=== PATIENT | female | born 1955 | race Hispanic/Latino ===

== ENCOUNTER 2019-03-15 06:30 | Day surgery (SDC) | payer OTHER ==
[~2019-03-15 06:30] MED LIST: Ringers Lactate 1,000 ML IV SCH
[2019-03-15] MEDS ORDERED: Ringers Lactate 1,000 ML IV ONE (06:57)
[2019-03-15] MEDS ORDERED: FENTANYL CITR 100 MCG/2 ML ONE ×2 (06:58→07:59)
[2019-03-15] MEDS ORDERED: PROPOFOL 200 MG/20 ML VIAL IV ONE ×2 (06:59→07:59)
[2019-03-15] MEDS ORDERED: LIDOCAINE 2% MPF 5 ML VIAL ONE (06:59)
[2019-03-15] MEDS ORDERED: MIDAZOLAM HCL 2 MG/2 ML INJ ONE (06:59)
[2019-03-15] MEDS ORDERED: ONDANSETRON 4 MG/2 ML VIAL ONE (07:00)
[2019-03-15] MEDS ORDERED: LIDOCAINE 1% W/EPI 1:100,000 MDV 50 ML VIAL ONE (07:27)
== END 2019-03-15 08:40 | disposition home or self-care (01) ==
LOC: OR 06:30
PROVIDERS: ATTEND Obstetrics & Gynecology
PROC: 0UJD8ZZ Inspection of Uterus and Cervix, Via Natural or Artificial Opening Endoscopic (ICD-10-PCS; 2019-03-15)
PROC: 0UDB7ZX Extraction of Endometrium, Via Natural or Artificial Opening, Diagnostic (ICD-10-PCS; principal; 2019-03-15 07:30)
DX: N95.0 Postmenopausal bleeding (principal); N81.2 Incomplete uterovaginal prolapse; N95.2 Postmenopausal atrophic vaginitis; I10 Essential (primary) hypertension; E03.9 Hypothyroidism, unspecified; K21.9 Gastro-esophageal reflux disease without esophagitis; E78.00 Pure hypercholesterolemia, unspecified; F41.9 Anxiety disorder, unspecified; Z79.899 Other long term (current) drug therapy; Z88.0 Allergy status to penicillin; Z88.8 Allergy status to other drugs, medicaments and biological substances; Z90.49 Acquired absence of other specified parts of digestive tract; Z80.3 Family history of malignant neoplasm of breast; Z80.0 Family history of malignant neoplasm of digestive organs; Z82.49 Family history of ischemic heart disease and other diseases of the circulatory system
CPT/HCPCS: 81025; 88305; J2250; J2405; J2704; J3010

== ENCOUNTER 2019-12-11 22:31 | Emergency (ER) | payer OTHER ==
[2019-12-11] MEDS ORDERED: NA CHLORIDE 0.9% 1,000 ML ONE (23:31)
[2019-12-12 00:10] LABS: Absolute Lymphocytes (CBC) 1.7 K/uL (0.7-4.9); Basophils % 0.7 % (0-1.3); Hematocrit 36.4 % (36.0-45.0); Lymphocytes % 23.1 % (15.3-44.8); MPV 7.1 fL (7.6-11.3); RBC Red Blood Cell Count 4.13 M/uL (3.86-4.86)
[2019-12-12 00:19] LABS: Albumin 3.7 g/dL (3.4-5.0); Bilirubin Direct 0.1 mg/dL (0-0.2); Bilirubin Total 0.3 mg/dL (0.2-1.0); Magnesium 1.9 mg/dL (1.8-2.4); Potassium 3.3 mmol/L (3.5-5.1)
--- NOTE | 2019-12-12 03:11 | ER ---
Nurse's Notes [facility] Name: Stephanie Cox Age: 64 yrs Sex: Female : 1955 Arrival Date: 12/11/2019 Time: 22:32 Bed 14 Private MD: Diagnosis: Diarrhea, unspecified Presentation: 12/11 22:45 Presenting complaint: Patient states: I am having diarrhea started yesterday, it like rr5 watery loose stool and if eel weak. denies nausea, vomiting and abdominal pain. 22:45 Transition of care: patient was not received from another setting of care. Onset of rr5 symptoms was December 10, 2019. Risk Assessment: Do you want to hurt yourself or someone else? Patient reports no desire to harm self or others. Initial Sepsis Screen: Does the patient meet any 2 criteria? HR > 90 bpm. No. Patient's initial sepsis screen is negative. Does the patient have a suspected source of infection? No. Patient's initial sepsis screen is negative. Care prior to arrival: None. 22:45 Method Of Arrival: Ambulatory rr5 22:45 Acuity: LIU 3 rr5 Historical: - Allergies: 22:50 PENICILLINS; rr5 22:50 Prevacid; rr5 22:50 Tamiflu; rr5 - Home Meds: 22:50 elavil [Active]; prolisec [Active]; Lisinopril Oral [Active]; cholestypol [Active]; rr5 levothyroxine oral [Active]; - PMHx: 22:50 Anxiety; Hypertension; Hyperlipidemia; Hypothyroidism; rr5 - PSHx: 22:50 Cholecystectomy; Hernia repair; cyst removed; Appendectomy; rr5 - Immunization history:: Adult Immunizations up to date. - Coronavirus screen:: The patient has NOT traveled to [place] in the past 14 days. Proceed with normal triage process as indicated. - Social history:: Smoking status: unknown Patient/guardian denies using alcohol, street drugs. - Ebola Screening: : Patient negative for fever greater than or equal to 101.5 degrees Fahrenheit, and additional compatible Ebola Virus Disease symptoms Patient denies exposure to infectious person Patient denies travel to an Ebola-affected area in the 21 days before illness onset. Screenin:55 Abuse screen: Denies threats or abuse. Denies injuries from another. Nutritional rr5 screening: No deficits noted. Tuberculosis screening: No symptoms or risk factors identified. Fall Risk None identified. Total Espinoza Fall Scale indicates No Risk (0-24 pts). Assessment: 22:50 General: Appears in no apparent distress. uncomfortable, Behavior is calm, cooperative, rr5 appropriate for age. Pain: Denies pain. Neuro: Level of Consciousness is awake, alert, obeys commands, Oriented to person, place, time, situation, Appropriate for age Reports weakness in generalized. Cardiovascular: Capillary refill < 3 seconds Patient's skin is warm and dry. Respiratory: Airway is patent Respiratory effort is even, unlabored, Respiratory pattern is regular, symmetrical. GI: Abdomen is round non-distended, Reports diarrhea, Patient currently denies nausea, vomiting. : No signs and/or symptoms were reported regarding the genitourinary system. EENT: No signs and/or symptoms were reported regarding the EENT system. Derm: Skin is intact, is healthy with good turgor, Skin temperature is warm. Musculoskeletal: Circulation, motion, and sensation intact. Capillary refill < 3 seconds. 23:50 Reassessment: Patient appears in no apparent distress at this time. No changes from rr5 previously documented assessment. Patient is alert, oriented x 3, equal unlabored respirations, skin warm/dry/pink. no complaints made. 12/12 03:28 Reassessment: Patient states feeling better. mg2 Vital Signs: 12/11 22:45 BP 142 / 81; Pulse 103; Resp 19; Temp 98; Pulse Ox 99% ; Weight 79.38 kg; Height 5 ft. rr5 3 in. (160.02 cm); Pain 0/10; 23:05 BP 150 / 80 Supine; Pulse 108; Resp 18; Pulse Ox 99% ; rr5 23:06 BP 150 / 81 Sitting; Pulse 105; Resp 17; Pulse Ox 98% ; rr5 23:07 BP 159 / 85 Standing; Pulse 107; Resp 16; Pulse Ox 99% ; rr5 12/12 01:52 BP 136 / 79; Pulse 92; Resp 18; Temp 97.9; Pulse Ox 100% on R/A; mg2 03:28 BP 141 / 83; Pulse 89; Resp 18; Temp 98; Pulse Ox 100% on R/A; mg2 12/11 22:45 Body Mass Index 31.00 (79.38 kg, 160.02 cm) rr5 ED Course: 12/11 22:32 Patient arrived in ED. cl3 22:46 Demian Patterson, RN is Primary Nurse. rr5 22:49 Triage completed. rr5 22:50 Arm band placed on right wrist. rr5 22:55 Sarabjit Mccartney PA is PHCP. cp 22:55 Den Nunn MD is Attending Physician. cp 22:56 Patient has correct armband on for positive identification. Bed in low position. Call rr5 light in reach. Pulse ox on. NIBP on. 23:46 No provider procedures requiring assistance completed. Inserted saline lock: 20 gauge mg2 in right antecubital area, using aseptic technique. Blood collected. by DARRYL Arciniega. 12/12 01:14 CT Abd/Pelvis - IV Contrast Only In Process Unspecified. EDMS 03:29 IV discontinued, intact, bleeding controlled, No redness/swelling at site. Pressure mg2 dressing applied. Administered Medications: 12/11 23:46 Drug: NS 0.9% 500 ml Route: IV; Rate: bolus; Site: right antecubital; mg2 12/12 01:30 Follow up: Response: No adverse reaction; IV Status: Completed infusion; IV Intake: mg2 500ml 03:27 Drug: Potassium Effervescent Tablet 50 mEq Route: PO; mg2 03:28 Follow up: Response: No adverse reaction; Medication administered at discharge. mg2 03:28 Drug: LoMOTIL 2 tabs Route: PO; mg2 03:28 Follow up: Response: No adverse reaction; Medication administered at discharge. mg2 Intake: 01:30 IV: 500ml; Total: 500ml. mg2 Outcome: 03:09 Discharge ordered by MD. cp 03:29 Discharged to home ambulatory, with family. mg2 03:29 Condition: stable 03:29 Discharge instructions given to patient, family, Instructed on discharge instructions, follow up and referral plans. Demonstrated understanding of instructions, follow-up care. 03:29 Patient left the ED. mg2 Signatures: Dispatcher [employer] EDMS Sarabjit Mccartney PA PA cp Edu Bird RN RN mg2 Demian Patterson RN RN rr5 Marlys Otto cl3 Corrections: (The following items were deleted from the chart) 12/11 23:09 23:06 BP 150 / 81; Pulse 105bpm; Resp 17bpm; 44.45 kg; BMI: 17.3; rr5 rr5 23:09 23:07 BP 159 / 85; Pulse 107bpm; Resp 16bpm; Pulse Ox 99%; rr5 rr5
--- NOTE | 2019-12-12 03:12 | EDPHYS ---
Physician Documentation [facility] Name: Stephanie Cox Age: 64 yrs Sex: Female : 1955 Arrival Date: 12/11/2019 Time: 22:32 Bed 14 Private MD: ED Physician Den Nunn HPI: 12/11 23:29 This 64 yrs old Female presents to ER via Ambulatory with complaints of cp Diarrhea. 23:29 The patient presents to the emergency department with diarrhea, that is intermittent, 4 cp times today. Onset: The symptoms/episode began/occurred yesterday. Possible causes: unknown. Associated signs and symptoms: Pertinent positives: general weakness, Pertinent negatives: abdominal pain, fever, GI bleeding. Severity of symptoms: in the emergency department the symptoms are unchanged despite home interventions. Historical: - Allergies: 22:50 PENICILLINS; rr5 22:50 Prevacid; rr5 22:50 Tamiflu; rr5 - Home Meds: 22:50 elavil [Active]; prolisec [Active]; Lisinopril Oral [Active]; cholestypol [Active]; rr5 levothyroxine oral [Active]; - PMHx: 22:50 Anxiety; Hypertension; Hyperlipidemia; Hypothyroidism; rr5 - PSHx: 22:50 Cholecystectomy; Hernia repair; cyst removed; Appendectomy; rr5 - Immunization history:: Adult Immunizations up to date. - Coronavirus screen:: The patient has NOT traveled to [place] in the past 14 days. Proceed with normal triage process as indicated. - Social history:: Smoking status: unknown Patient/guardian denies using alcohol, street drugs. - Ebola Screening: : Patient negative for fever greater than or equal to 101.5 degrees Fahrenheit, and additional compatible Ebola Virus Disease symptoms Patient denies exposure to infectious person Patient denies travel to an Ebola-affected area in the 21 days before illness onset. ROS: 23:40 Constitutional: Negative for body aches, chills, fever, poor PO intake. cp 23:40 Eyes: Negative for injury, pain, redness, and discharge. cp 23:40 ENT: Negative for drainage from ear(s), ear pain, sore throat, difficulty swallowing, difficulty handling secretions. 23:40 Cardiovascular: Negative for chest pain, palpitations. 23:40 Respiratory: Negative for cough, shortness of breath, wheezing. 23:40 Abdomen/GI: Positive for diarrhea, Negative for abdominal pain, nausea, vomiting, constipation, anorexia, black/tarry stool, rectal bleeding. 23:40 Back: Negative for pain at rest, pain with movement, radiated pain. 23:40 : Negative for urinary symptoms. 23:40 Skin: Negative for rash. 23:40 Neuro: Positive for general weakness, Negative for altered mental status, dizziness, headache, syncope. 23:40 All other systems are negative. Exam: 23:45 Constitutional: The patient appears in no acute distress, alert, awake, cp non-diaphoretic, non-toxic, well developed, well nourished. 23:45 Head/Face: Normocephalic, atraumatic. cp 23:45 Eyes: Periorbital structures: appear normal, Conjunctiva: normal, no exudate, no injection, Sclera: no appreciated abnormality, Lids and lashes: appear normal, bilaterally. 23:45 ENT: External ear(s): are unremarkable, Nose: is normal, Mouth: Lips: moist, Oral mucosa: pink and intact, moist, Posterior pharynx: is normal, airway is patent, no erythema, no exudate. 23:45 Chest/axilla: Inspection: normal. 23:45 Cardiovascular: Rate: tachycardic, Rhythm: regular, Edema: is not appreciated, JVD: is not appreciated. 23:45 Respiratory: the patient does not display signs of respiratory distress, Respirations: normal, no use of accessory muscles, no retractions, labored breathing, is not present, Breath sounds: are clear throughout, no decreased breath sounds. 23:45 Abdomen/GI: Inspection: abdomen appears normal, Bowel sounds: active, all quadrants, Palpation: abdomen is soft and non-tender, in all quadrants, rebound tenderness, is not appreciated, voluntary guarding, is not appreciated, involuntary guarding, is not appreciated. 23:45 Back: pain, is absent, ROM is normal. 23:45 Neuro: Orientation: to person, place \T\ time. Mentation: is normal, Motor: moves all fours, strength is normal. Vital Signs: 22:45 BP 142 / 81; Pulse 103; Resp 19; Temp 98; Pulse Ox 99% ; Weight 79.38 kg; Height 5 ft. rr5 3 in. (160.02 cm); Pain 0/10; 23:05 BP 150 / 80 Supine; Pulse 108; Resp 18; Pulse Ox 99% ; rr5 23:06 BP 150 / 81 Sitting; Pulse 105; Resp 17; Pulse Ox 98% ; rr5 23:07 BP 159 / 85 Standing; Pulse 107; Resp 16; Pulse Ox 99% ; rr5 12/12 01:52 BP 136 / 79; Pulse 92; Resp 18; Temp 97.9; Pulse Ox 100% on R/A; mg2 03:28 BP 141 / 83; Pulse 89; Resp 18; Temp 98; Pulse Ox 100% on R/A; mg2 12/11 22:45 Body Mass Index 31.00 (79.38 kg, 160.02 cm) rr5 MDM: 12/11 23:10 Patient medically screened. cp 12/12 00:00 Differential diagnosis: gastritis, diverticulitis, gastroenteritis, colitis. cp 03:08 Data reviewed: vital signs, nurses notes, lab test result(s), radiologic studies, CT cp scan, and as a result, I will discharge patient. 03:08 Counseling: I had a detailed discussion with the patient and/or guardian regarding: the cp historical points, exam findings, and any diagnostic results supporting the discharge/admit diagnosis, lab results, radiology results, to return to the emergency department if symptoms worsen or persist or if there are any questions or concerns that arise at home. Response to treatment: the patient's symptoms have markedly improved after treatment, and as a result, I will discharge patient. 12/11 23:22 Order name: Basic Metabolic Panel; Complete Time: 00:30 cp 12/12 00:31 Interpretation: Normal except: K 3.3; CL 108; GLUC 122; GFR 73. cp 12/11 23:22 Order name: CBC with Diff; Complete Time: 00:21 cp 12/12 00:21 Interpretation: Normal except: MPV 7.1. cp 12/11 23:22 Order name: Creatinine for Radiology; Complete Time: 00:30 cp 12/11 23: Order name: Hepatic Function; Complete Time: 00:30 cp 12/12 00:31 Interpretation: Normal except: ALK 152; GLOB 4.3; A/G 0.9. cp 12/11 23:22 Order name: Lipase; Complete Time: 00:30 cp 12/12 00:31 Interpretation: Within normal limits: LIP 152. cp 12/11 23:22 Order name: Magnesium; Complete Time: 00:30 cp 12/11 22:58 Order name: Orthostatics; Complete Time: 23:01 cp 12/11 23:22 Order name: IV Saline Lock; Complete Time: 23:46 cp 12/11 23:22 Order name: CT Abd/Pelvis - IV Contrast Only cp 12/11 23:22 Order name: Labs collected and sent; Complete Time: 23:46 cp Administered Medications: 12/11 23:46 Drug: NS 0.9% 500 ml Route: IV; Rate: bolus; Site: right antecubital; mg2 12/12 01:30 Follow up: Response: No adverse reaction; IV Status: Completed infusion; IV Intake: mg2 500ml 03:27 Drug: Potassium Effervescent Tablet 50 mEq Route: PO; mg2 03:28 Follow up: Response: No adverse reaction; Medication administered at discharge. mg2 03:28 Drug: LoMOTIL 2 tabs Route: PO; mg2 03:28 Follow up: Response: No adverse reaction; Medication administered at discharge. mg2 Disposition: 03:32 Co-signature as Attending Physician, Den Nunn MD. rn Disposition: 12/12/19 03:09 Discharged to Home. Impression: Diarrhea, unspecified. - Condition is Stable. - Discharge Instructions: Food Choices to Help Relieve Diarrhea, Adult, Diarrhea, Adult. - Medication Reconciliation Form, Thank You Letter, Antibiotic Education, Prescription Opioid Use, Family Work Release form. - Follow up: Private Physician; When: 1 - 2 days; Reason: Worsening of condition. - Problem is new. - Symptoms have improved. Signatures: Dispatcher [employer] EDMS Den Nunn MD MD rn Saarbjit Mccartney PA PA cp Edu Bird, RN RN mg2 Demian Patterson RN RN rr5 Corrections: (The following items were deleted from the chart) 03:29 03:09 12/12/2019 03:09 Discharged to Home. Impression: Diarrhea, unspecified. Condition mg2 is Stable. Forms are Family Work Release, Medication Reconciliation Form, Thank You Letter, Antibiotic Education, Prescription Opioid Use. Follow up: Private Physician; When: 1 - 2 days; Reason: Worsening of condition. Problem is new. Symptoms have improved. cp
[2019-12-12] MEDS ORDERED: DIPHENOX/ATROP SULF 1 TAB PO ONE (03:22)
[2019-12-12] MEDS ORDERED: POTASSIUM 25 MEQ EFFERV TAB ONE (03:22)
[2019-12-12 05:27] VITALS: O2SAT 100
[2019-12-12 05:29] VITALS: BP 141/83; TEMP 98
--- NOTE | 2019-12-12 13:23 | RAD REPORT ---
EXAM DESCRIPTION: CT - Abdomen Pelvis W Contrast - 12/12/2019 3:35 am COMPARISON: None. TECHNIQUE: CT ABDOMEN PELVIS WITH IV CONTRAST on 12/11/2019 11:22 PM [facility] This exam was performed according to our departmental dose-optimization program, which includes autom ated exposure control, adjustment of the mA and/or kV according to patient size and/or use of iterati ve reconstruction technique. FINDINGS: Lower lungs are clear. Abdomen: The liver is normal in appearance. There is no biliary dilatation. Cholecystectomy was perfo rmed. The pancreas and spleen are normal in appearance. Adrenal glands are normal. Left kidney is unr emarkable. There is a small right renal cyst. Abdominal aorta is normal in course and caliber without aneurysm. There is no free air. There is no r etroperitoneal adenopathy. Pelvis: There is scattered fluid in the proximal two thirds of the colon. Urinary bladder is unremark able. There is no free fluid. Hysterectomy was performed. Appendix is not clearly seen. Skeleton: There are no acute osseous findings. No suspicious bony lesions. IMPRESSION: Minimal fluid in the proximal colon. Electronically signed by: Geovani Wade MD 12/12/2019 1:33 AM [facility] Due to temporary technical issues with the PACS/Fluency reporting system, reports are being signed by the in house radiologist as a courtesy to ensure prompt reporting. The interpreting radiologist is f ully responsible for the content of the report.
== END 2019-12-12 03:29 | disposition home or self-care (01) ==
LOC: ER 22:31
DX: R19.7 Diarrhea, unspecified (principal); I10 Essential (primary) hypertension; F41.9 Anxiety disorder, unspecified; E78.5 Hyperlipidemia, unspecified; E03.9 Hypothyroidism, unspecified; Z88.0 Allergy status to penicillin; Z88.8 Allergy status to other drugs, medicaments and biological substances
CPT/HCPCS: 96361; 85025; 80048; 36415; 83735; 80076; 83690; 74177; 96360; 99284; Q9967; J7030

== ENCOUNTER 2020-04-24 09:28 | Day surgery (SDC) | payer OTHER ==
[2020-04-18 12:26] LABS: Urine Appearance CLEAR; Urine Bilirubin NEGATIVE (NEG); Urine Blood TRACE (NEG); Urine Color YELLOW; Urine Glucose NEGATIVE (NEG); Urine Protein NEGATIVE (NEG); Urine Specific Gravity <=1.005 (1.005-1.030); Urine Urobilinogen 0.2 mg/dL (0.2-1.0)
[2020-04-18 12:27] LABS: Absolute Lymphocytes (CBC) 2.1 K/uL (0.7-4.9); Basophils % 0.9 % (0-1.3); Hematocrit 36.6 % (36.0-45.0); Lymphocytes % 37.2 % (15.3-44.8); MPV 7.2 fL (7.6-11.3); RBC Red Blood Cell Count 4.15 M/uL (3.86-4.86)
[2020-04-18 12:30] LABS: Urine Microscopic Reflex ORDER UMIC
[2020-04-18 12:30] LABS: Protime INR 0.91
[2020-04-18 12:42] LABS: Potassium 3.7 mmol/L (3.5-5.1)
[2020-04-18 12:51] LABS: Urine Bacteria NONE SEEN /HPF (<20); Urine Culture Reflex Order NOT NEEDED; Urine RBC <5 /HPF (NONE SEEN)
[2020-04-24] MEDS ORDERED: SCOPOLAMINE HYDROBROMIDE PATCH TD ONE (09:51)
[2020-04-24] MEDS ORDERED: Ringers Lactate 1,000 ML IV ONE ×4 (09:51→19:37)
[2020-04-24] MEDS ORDERED: NA CHLORIDE 0.9% 100 ML IV ONE (11:09)
[2020-04-24] MEDS ORDERED: VASOPRESSIN 20 UNIT/ML VIAL ONE (11:09)
[2020-04-24] MEDS ORDERED: BUPIVACAINE 0.25% PF 30 ML VIAL ONE (11:10)
[2020-04-24] MEDS ORDERED: propofoL 200 MG/20 ML VIAL IV ONE (11:14)
[2020-04-24] MEDS ORDERED: dexAMETHasone 10 MG/ML VIAL ONE ×2 (11:14→12:22)
[2020-04-24] MEDS ORDERED: FENTANYL CITR 250 MCG/5 ML ONE (11:14)
[2020-04-24] MEDS ORDERED: MIDAZOLAM HCL 2 MG/2 ML INJ ONE (11:14)
[2020-04-24] MEDS ORDERED: LIDOCAINE 1% MPF 5 ML VIAL ONE (11:14)
[2020-04-24] MEDS ORDERED: NS 0.9% VIAL 10 ML ONE (11:14)
[2020-04-24] MEDS ORDERED: ONDANSETRON 4 MG/2 ML VIAL ONE ×3 (11:15→19:32)
[2020-04-24] MEDS: CEFAZOLIN/SWI 2gm 2 GM/20 ML SYR ONE ×2 (11:49→12:00)
[2020-04-24] MEDS ORDERED: LANO/MINERAL OIL/PETRO 3.5 GM ONE (12:11)
[2020-04-24] MEDS ORDERED: VECURONIUM 10 MG/VIAL IV ONE ×2 (12:12→12:13)
[2020-04-24] MEDS ORDERED: KETOROLAC 30 MG/ML INJ ONE (12:23)
[2020-04-24] MEDS ORDERED: GLYCOPYRROLATE 0.2 MG/ML SYR ONE ×3 (12:34→18:41)
[2020-04-24] MEDS ORDERED: NA CHLORIDE 0.9% 1,000 ML ONE (12:41)
[2020-04-24] MEDS ORDERED: CEFAZOLIN/SWI 1gm 1 GM/10 ML SYR ONE (13:21)
[2020-04-24] MEDS ORDERED: CEFAZOLIN SODIUM 1 GM/VIAL ONE (13:33)
--- NOTE | 2020-04-24 17:46 | P.OP ---
It Coordinator: Dr. Connors Preoperative diagnosis: Intra-abdominal Adhesions Postoperative diagnosis: Intra-abdominal Adhesions Primary procedure: Laparoscopic Adhesiolysis Secondary procedure: Laparoscopic Exploration Anesthesia: GETA Estimated blood loss: <1cc Specimen: None Findings: Intra-abdominal adhesions Complications: None
[2020-04-24] MEDS ORDERED: NEOSTIGMINE 1 MG/ML -5 ML ONE (18:40)
[2020-04-24] MEDS ORDERED: HYDROCODONE/APAP 5/325 MG TAB PO PRN (19:23)
[2020-04-24] MEDS ORDERED: IBUPROFEN 200 MG TAB PO PRN (19:23)
[2020-04-24] MEDS ORDERED: PROMETHAZINE INJ 25 MG/ML AMP IV PRN (19:23)
[2020-04-24] MEDS ORDERED: MORPHINE 2 MG/ML SYR IV PRN (19:28)
[2020-04-24] MEDS ORDERED: PROMETHAZINE INJ 25 MG/ML AMP ONE (19:32)
[2020-04-24] MEDS ORDERED: FENTANYL CITR 100 MCG/2 ML ONE (19:33)
--- NOTE | 2020-04-24 19:34 | P.BOP ---
Preoperative diagnosis: stage 4 uterovaginal prolapse,occult STEPHEN, posterior wall and perineal body Postoperative diagnosis: same and adhesions Primary procedure: TLH BSO, LSCP with Upsylon mesh,TVT-O cysto,post wall/perineal body repairs Secondary procedure: Laparoscopic lysis of adhesions Speech Therapist Early Intervention: Dr. Connors Estimated blood loss: 100 Specimen: uterus tubes and ovaries Findings: 0/+3/+8/5/mod/9/-2/+3/+7, intra-abdominal adhesions omentum Anesthesia: General Complications: None Drain(s): Urinary catheter Implants: UPSYLON, TVT-O Transferred to: Recovery Room Condition: Good
[2020-04-24] MEDS ORDERED: MEPERIDINE HCL 25 MG/ML SYR ONE (19:35)
[2020-04-24] MEDS: HYDROMORPHONE HCL 1 MG/ML INJ ONE ×2 (19:43→19:50)
[2020-04-24] MEDS ORDERED: Ringers Lactate 1,000 ML IV SCH (20:00)
[2020-04-24 21:50] VITALS: BMI 28.5
[2020-04-25 00:53] VITALS: O2SAT 98
[2020-04-25] MEDS ORDERED: LEVOTHYROXINE SOD 0.05 MG TABLET PO SCH (06:00)
[2020-04-25 06:30] LABS: Absolute Lymphocytes (CBC) 1.3 K/uL (0.7-4.9); Basophils % 0.1 % (0-1.3); Hematocrit 35.7 % (36.0-45.0); Lymphocytes % 12.7 % (15.3-44.8); RBC Red Blood Cell Count 4.03 M/uL (3.86-4.86)
[2020-04-25] MEDS ORDERED: PANTOPRAZOLE 40MG TABLET PO SCH (06:30)
[2020-04-25] MEDS ORDERED: MORPHINE 4 MG/ML SYR IV PRN (07:31)
[2020-04-25 07:41] VITALS: BP 129/73; TEMP 97.3
[2020-04-25] MEDS ORDERED: PNEUMOCOCCAL VACCINE 0.5 ML IMVAC ONE (09:00)
[2020-04-25] MEDS ORDERED: METOPROLOL XL 25 MG TAB PO SCH (09:00)
[2020-04-25] MEDS ORDERED: lisinopriL 20 MG TAB PO SCH (09:00)
[2020-04-25] MEDS ORDERED: lisinopriL 10 MG TAB PO SCH (09:00)
[2020-04-25 09:53] LABS: Blood Morphology Comment NOT SEEN (NOT SEEN); Platelet Estimate ADEQ; Urine White Blood Cell Casts OK
--- NOTE | 2020-04-28 11:46 | OP ---
Date of Procedure: 04/24/2020 Surgeon: Jasmyne Connors MD Family Life Counselor: Elisa Calderon, and Dr. Burks. Intraoperative consult for assistance and lysis of adhes ions. Preoperative Diagnoses: Stage IV uterovaginal prolapse, postmenopausal bleeding, posterior wall defe ct, and occult stress urinary incontinence. Postoperative Diagnoses: Stage IV uterovaginal prolapse, postmenopausal bleeding, posterior wall def ect, and occult stress urinary incontinence, and omental adhesions. Procedures Performed: 1.Total laparoscopic hysterectomy, bilateral salpingo-oophorectomy. 2.Laparoscopic sacral colpopexy using Epsilon mesh. 3.Lysis of adhesions. 4.Mid urethral sling (TVTO) cystoscopy. 5.Posterior wall defect and perineal body defect repairs. Specimens: Uterus, tubes, and ovaries. Complications: No complications. Drains: Hirsch catheter. Condition: The patient's condition stable. Indications For Procedure: The patient is a 64-year-old female with significant vaginal prolapse, pr esented with symptoms and difficult emptying her bladder and was evaluated last year. She refused to have pessary management. She had waited an additional year before deciding that she want s surgical treatment after the bulges causing her significant discomfort, then the voiding problems, then urgency related to overactive bladder symptoms. She has decided to proceed with surgery, tono de [place] paz. Alternatives were discussed including vaginal repair, colpocleisis or sacral colpopexy. After understanding the benefits and risks of these procedure, she consented for proceeding with sacrocolpo pexy, removal of uterus and tubes and ovaries especially in the presence of postmenopausal bleeding. Her endometrial evaluation was negative for atypia or malignancy. Description Of Procedure: After informed consent was verified, the patient was taken back to the ope rating room, placed in supine fashion on the operating table, general anesthesia was given. She was placed in dorsal lithotomy position. Pelvic exam was performed. POP-Q as dictated 0, +3, +8, 5 moder ate 9 cm, -2, +3, and +7. Omental adhesions seen, Dr. Burks assisted. Sacrocolpopexy mesh was placed without significant problem using ProTack 4 prolene sutures at the dis agbbi fixation point, 2 anterior and 2 posterior for the graft and rest with 2-0 V-Loc. Then, closure of the peritoneum to retroperitonealize the graft with 2-0 V-Loc as well. Abdomen, vulva, vagina, and perineum were prepped and draped in a sterile fashion. Hirsch was placed to drain the bladder, attached for retrograde filling. A medium VCare was introduced in the uterus a nd fixed in place. The vaginal prolapse was pushed inside and procedure started. 1 cm infraumbilical incision made with a scalpel using the open laparoscopy technique. Fascia was in cised, tagged with 0 Vicryl sutures. S-retractors were placed after exposing the peritoneum. The pe ritoneum was picked up and sharply incised. S-retractors were placed into the peritoneal cavity. Rodriguez sson introduced. Insufflated site of entry was checked, unremarkable. There were omental adhesions to the anterior abdominal wall in the right lower quadrant and in the right lateral anterior abdomina l wall. After placing the left lower quadrant incision, then all these adhesions were taken down to facilitate the placement of the right lower quadrant port. Once this was placed, which is also a 5, a 10 mm suprapubic port was placed without any problems. Then, I went ahead and evaluated the latera l house. Bowel was retracted superiorly, patient placed in Trendelenburg. Hysterectomy was performed with the help of a LigaSure, taken down the utero-ovarian ligament, tubes, and mesosalpinx, then round ligaments, broad ligaments were taken down. Vessels were skeletonized, vessels taken down on the left side, then on the right side similar dissection was performed. Circum ferential colpotomy was performed with a monopolar hook blade and specimen detached and pulled out th rough the vagina. 2-0 V-Loc was used to closed in a continuous running fashion from [id number] and [id number]-[id number] in 2 layers vaginal epithelium and pelvic epithelium first and then connective tissue layers on the top. The vaginal occluder sponge was removed and then the Epsilon mesh kit was opened and the retractor wa s opened up and was used on the wider side for retraction. After making sure that the bladder was adequately visualized, had Dr. Burks has placed, look at his note. He did his part of the procedure and remained to made through the rest of the procedure. The bladder was raised and the plane between the bladder and the vagina was created, making sure it w as not in the vesicovaginal space, 1 layer superior to it. The bladder was taken down about 5 cm fro m the closure, then came down posteriorly and the peritoneum was picked up and incised with scissors then sharply taken down, the dissection was done sharply staying at the level of the vaginal wall pos teriorly, then dropping the rectum down and getting down to 9 cm on the posterior wall from the apex. Then, at this point once the dilation was performed on the lateral aspects as well then went back a nteriorly. More laterally that had to be taken down, LigaSure was used for this dissection with just a sharp blade in most places and occasionally for the bipolar affect. The promontory peritoneum was picked up and incised with the help of the LigaSure, then, the incision carried , inferior to the vein and then distally, then dissection taken down to join the p eritoneum on the posterior wall dissection. Staying in between the bowel and the ureter. Avoided the hypogastric plexus during this dissection. Put in Epsilon mesh graft, opened it and trimmed it with its length by 1 cm on the posterior aspect a nd the anterior was sutured onto the sacral arm with 3-0 chromic stitch for retraction. A central khan ture was placed with the help of 2-0 V-Loc in the midline of the posterior vaginal wall and the lowes t part of the dissection. Then graft was pulled in and laid out there and two 2-0 Prolene sutures we re placed on each side. A veoxye-nn-prkwv was placed and then passed through the graft and they were tied on each side laterally to lay down the mesh. The mesh was retracted superiorly through the sup rapubic port so that it laid on the vaginal wall well-opposed and 2 V-Loc sutures were placed in a fi fncg-sw-[id number] fashion to hold it in place in the distal part about 1.5 cm inferior to the vaginal cuf f closure. Then, the arm was taken to promontory and was fixated here after appropriately tensioning from the level of the bifurcation about 3 cm was used. This appeared to be appropriate tension. I placed 2 ProTacks at 4 cm length from the bifurcation. Once the retractor was removed, the vagina po sitioned into the anatomical position, I felt like this was slightly looser than what was optimal sti ll without tension, so 1 cm was pulled superiorly and then rest of the ProTacks were placed; 2 were p laced to tension first, then folded over and placed 2 more. There was excellent suspension. The ret ractor was removed and made sure that the access was appropriate and there was not too much tension a nd this was appropriate without excessive tension. The mesh was trimmed at the sacral the Vicryl stitch was removed. The anterior arm placed on the anterior wall. Distal 2-0 Prolene sutures were taken in and the inferior most, lateral most fixation points on the vaginal wall, then fixated to the graft, then 2-0 V-Loc sutures were placed 1 on each side about 1 cm distal to the closure for holding the graft in place. Once this was done, a central 2-0 V-Loc suture was placed here and distally as well, another 2-0 V-Loc had to be placed in a central position distally to keep the graft in place because the other one had pulled through. Once the entire tensioning was done, I went down vaginally and checked 1 more time. There was excell ent anterior and posterior wall support. After changing the gloves, went back onto the top and closed the peritoneum with a continuous 2-0 V-L oc, completely retroperitonealsing the peritoneum in the usual fashion. Thorough irrigation and suction was performed. All trocars were removed. There was significant diff iculty with retention of trocars within the abdominal wall on both 8 ports on the lateral aspects. T he patient could have some pain in this from constant repositioning of the retractors. They were too short and there was no replacement alternative for that. All the trocars were removed. The fascia at the umbilicus was tied with tag sutures tied together an d simple Vicryl stitch at the suprapubic fascial incision. All the incisions were injected with Jimy christina at the entry and exit both the fascia and the skin. Skin closed with the help of interrupted 4- 0 Vicryl sutures. The patient did have hypercapnia and some difficulty ventilating, had to stop in between and wait to hyperventilate the patient. However, her pCO2 ran somewhere at 50 at an average through most of the case or at least 3/4 of the case. She will be observed regularly. There were no concerns extubating the patient or ventilating the patient before she was woken up. Going on vaginally, mid urethral area was picked up with 2 Allis clamps, injected with dilute vasopre ssin, then 1 cm midline incision was made with scalpel. Then, dissection was performed towards the i psilateral shoulder, hugging the inferior pubic ramus into the obturator space. Once this channel wa s created, then a 45- degree angle to the vertical and horizontal planes, a similar channel was creat ed on the left side. Then, the wing guide was taken, TVTO spike was passed in the usual fashion hugg ing the inferior pubic ramus and exiting 1 cm lateral to the groin fold and 2 cm superior to the hori zontal line dropped at the level of the external urethral meatus avoiding the tendon. In a similar f ashion, wing guide was placed. Trocar was passed and exit point was made and appropriate tension was done, sheaths were pulled out. Then, closure of the epithelium was done with the help of 3-0 Vicryl in a continuous running locked fashion. Hirsch was removed, cystoscopy was performed, exc ellent urine jets from both ureteric orifices. No evidence of any trauma to the bladder. No mesh in the bladder. The bladder inspection was negative. The bladder was drained, Hirsch was replaced, clamped with a Elenita. The vaginal wall was inspected. There was a distal defect. Perineal body appeared to be slightly we ak, but most of the posterior defect was completely corrected. So 2 Allis clamps were placed on eith er side at the level of the vestibule. Then injected the perineal area as well as the posterior wall with dilute vasopressin. A triangular incision made on the perineum and then another triangular inc ision made on the posterior vaginal wall. The epithelium was excised and both spots undermined the d istal part of the connective tissue and the posterior wall was detached from the perineal body. This was reattached after plicating from [id number] with the help of 2-0 Vicryl then rebuilding the per ineal body with a 2-0 Vicryl and then reattaching it. Vaginal epithelium was slightly trimmed and cl osed with the help of less than half a cm and closed with the help of a 2-0 Vicryl continuous running horizontal mattress stitch and 3-0 Vicryl was used to close the perineal incision by putting the per ineal body together in the distal perineal aspect. After the suture was cut, rectal exam was perform ed, no evidence of any suture or trauma to the rectum. The patient was recovered from anesthesia aft er instrument, needle, and sponge counts were correct x3 at the end of the case. Hirsch was left in p lace, packing placed. This will be removed in the morning and she will undergo a voiding trial. She got a second dose of Ancef, she had initial dose of 2 g and a repeat dose 1 g. PRABHA/CECILIA Voice ID: [id number] Report ID: [id number]
--- NOTE | 2020-04-30 09:45 | OP ---
Date of Procedure: 04/24/2020 Surgeon: Phuc Burks MD, Brief History Of Present Illness: I was consulted by Dr. Jasmyne Connors for intraoperative consult ation for the patient she was performing a total laparoscopic hysterectomy, bilateral salpingo-oophor ectomy, laparoscopic sacral colpopexy with Epsilon mesh and a urethral sling TVT-O, cystoscopy with p osterior wall defect and perineal body defect repairs. She consulted me to help her with this case a s such I was co-surgeon during my aspect of this procedure. Postoperative Diagnosis: Extensive intraabdominal adhesions from my aspect. Please see Dr. Connors 's note for her aspect. Postoperative Diagnosis: Extensive intraabdominal adhesions from my aspect. Please see Dr. Connors 's note for her aspect. Procedure Performed: Laparoscopic exploration as well as laparoscopic adhesiolysis and I assisted Dr Samuel Connors with the remainder of her aspect of the operation. Estimated Blood Loss: For my aspect of the operation, less than 1 cc. Anesthesia: General endotracheal. Specimen: None. Findings: Consistent with significant intraabdominal adhesions. Complications: None for my aspect. Please see Dr. Connors's note for full details. Procedure In Detail: The patient was prepped and draped in the usual sterile fashion. Upon my entry to the room, Dr. Connors was already performing the procedure and I came into note significant intr aabdominal adhesions, particularly in the pelvic region. The laparoscopic exploration was performed at this point of the pelvis and I used the LigaSure device and blunt dissection to take down multiple adhesions predominantly to the pelvic wall and interloop as well as between the pelvic structures an d the rectosigmoid colon. After this was performed, I assisted Dr. Connors for the remainder of her procedure. The patient tolerated the procedure well without evidence of complication, transferred t o the PACU after Dr. Connors completed her aspect of the operation. There were no complications fro m my aspect of the operation. Please see Dr. Connors's note for full details. TK/MODL Voice ID: [id number] Report ID: [id number]
== END 2020-04-25 11:00 | disposition home or self-care (01) ==
LOC: OR 09:28 → 2ND-WC 21:22 → UNDOADMIN 21:22 → 2ND-WC 21:24 → UNDODISIN 04-25 11:00 → OR 04-25 11:00
PROVIDERS: ATTEND Obstetrics & Gynecology
PROC: 0UT24ZZ Resection of Bilateral Ovaries, Percutaneous Endoscopic Approach (ICD-10-PCS; 2020-04-24)
PROC: 0UT74ZZ Resection of Bilateral Fallopian Tubes, Percutaneous Endoscopic Approach (ICD-10-PCS; 2020-04-24)
PROC: 0USG4ZZ Reposition Vagina, Percutaneous Endoscopic Approach (ICD-10-PCS; 2020-04-24)
PROC: 0UUG4JZ Supplement Vagina with Synthetic Substitute, Percutaneous Endoscopic Approach (ICD-10-PCS; 2020-04-24)
PROC: 0USG7ZZ Reposition Vagina, Via Natural or Artificial Opening (ICD-10-PCS; 2020-04-24)
PROC: 0UT94ZZ Resection of Uterus, Percutaneous Endoscopic Approach (ICD-10-PCS; principal; 2020-04-24 10:30)
DX: N81.4 Uterovaginal prolapse, unspecified (principal); N95.0 Postmenopausal bleeding; N39.3 Stress incontinence (female) (male); K66.0 Peritoneal adhesions (postprocedural) (postinfection); N72 Inflammatory disease of cervix uteri; N88.0 Leukoplakia of cervix uteri; D25.9 Leiomyoma of uterus, unspecified; N89.8 Other specified noninflammatory disorders of vagina
CPT/HCPCS: 58571; 57288; 57285; 57267 ×2; 57283; 85025 ×2; 80048; 36415 ×2; 86900; 86850; 85610; 86901; 88305; 88311; 85730; 90670; U0002; J2704; J2550; J2250; J3010; J1100 ×2; J1170; J2710; J0690 ×3; J7120 ×5; J7030; J2405 ×2; 81003; 81015; J2175; J2270

== ENCOUNTER 2020-06-26 10:11 | Observation (INO) | payer OTHER ==
[2020-06-26 11:05] LABS: Absolute Lymphocytes (CBC) 1.5 K/uL (0.7-4.9); Basophils % 0.5 % (0-1.3); Hematocrit 32.2 % (36.0-45.0); Lymphocytes % 19.2 % (15.3-44.8); MPV 6.6 fL (7.6-11.3)
[2020-06-26 11:14] LABS: Protime INR 1.11
[2020-06-26 11:22] LABS: BUN Blood Urea Nitrogen 8 mg/dL (7-18); Bicarbonate 27 mmol/L (21-32); Ferritin 254.5 ng/mL (8-388); Glucose Level 168 mg/dL (74-106); NT PRO-BNP 112 pg/mL (<125); Potassium 3.4 mmol/L (3.5-5.1); Sodium Level 134 mmol/L (136-145); Troponin (Emerg Dept Use Only) < 0.02 ng/mL (0.0-0.045)
[2020-06-26] MEDS ORDERED: NA CHLORIDE 0.9% 1,000 ML ONE (11:34)
[2020-06-26] MEDS ORDERED: dexAMETHasone 10 MG/ML VIAL ONE (11:34)
--- NOTE | 2020-06-26 12:15 | RAD REPORT ---
EXAM DESCRIPTION: CT - Chest For Pe Angio - 06/26/2020 12:05 pm CLINICAL HISTORY: sob COMPARISON: None. TECHNIQUE: Dynamically enhanced axial 3 mm thick images of the chest were obtained during administra tion of <100> mL Isovue 370 IV contrast. Coronal and oblique reconstruction images were generated and reviewed. Exam utilizes a protocol for optimal evaluation of pulmonary arterial tree. Maximum intensity projections 3D imaging was utilized All CT scans are performed using dose optimization technique as appropriate and may include automated exposure control or mA/KV adjustment according to patient size. FINDINGS: A pulmonary embolus is not seen. A thoracic aortic aneurysm is not noted. A pleural effusion is not seen. A pericardial effusion is not seen. Mild to moderate bilateral ground-glass opacities within the lungs IMPRESSION: Negative for a pulmonary embolism. Mild to moderate ground-glass opacities within the lungs may represent viral pneumonia, pneumonitis o r pulmonary edema
--- NOTE | 2020-06-26 12:35 | ER ---
Nurse's Notes [facility] Name: Stephanie Cox Age: 65 yrs Sex: Female : 1955 Arrival Date: 06/26/2020 Time: 10:14 Bed 14 Private MD: Diagnosis: Pneumonia, unspecified organism;Hypoxemia;Dyspnea, unspecified;Influenza due to other identified influenza virus Presentation: 06/26 10:28 Chief complaint: Patient states: SOB at rest, worst with exertion x 1 week, cough x 2 ca1 weeks. Denies fever. Denies N/V/D. Coronavirus screen: cough unrelated to allergies, shortness of breath, The client reports previous COVID testing was negative. Date of collection: June 13, 2020. Coronavirus screen: Client presents with at least one sign or symptom that may indicate coronavirus-19. Standard/surgical mask placed on the client. Provider contacted for isolation considerations. Ebola Screen: Patient negative for fever greater than or equal to 101.5 degrees Fahrenheit, and additional compatible Ebola Virus Disease symptoms Patient denies exposure to infectious person. Patient denies travel to an Ebola-affected area in the 21 days before illness onset. No symptoms or risks identified at this time. Initial Sepsis Screen: Does the patient meet any 2 criteria? RR > 20 per min. HR > 90 bpm. Yes Does the patient have a suspected source of infection? Yes: Productive cough/pneumonia. Risk Assessment: Do you want to hurt yourself or someone else? Patient reports no desire to harm self or others. Onset of symptoms was June 26, 2020. 10:28 Method Of Arrival: Ambulatory ca1 10:28 Acuity: LIU 2 ca1 Triage Assessment: 10:30 General: Appears distressed, uncomfortable, ill, Behavior is cooperative, appropriate bp for age, anxious. Pain: Denies pain. EENT: No deficits noted. Neuro: No deficits noted. Cardiovascular: No deficits noted. Respiratory: Reports shortness of breath cough that is Onset: The symptoms/episode began/occurred at an unknown time. the patient has mild shortness of breath. GI: No signs and/or symptoms were reported involving the gastrointestinal system. : No signs and/or symptoms were reported regarding the genitourinary system. Derm: No deficits noted. Musculoskeletal: No deficits noted. Historical: - Allergies: 10:34 PENICILLINS; ca1 10:34 Prevacid; ca1 10:34 Tamiflu; ca1 10:34 Tape; ca1 10:34 Latex, Natural Rubber; ca1 - PMHx: 10:34 Anxiety; Hyperlipidemia; Hypertension; Hypothyroidism; ca1 - PSHx: 10:34 Cholecystectomy; Hernia repair; cyst removed; Appendectomy; Hysterectomy; Bladder Lift; ca1 - Immunization history:: Adult Immunizations up to date. - Social history:: Smoking status: Patient denies any tobacco usage or history of. - Family history:: not pertinent. - Hospitalizations: : No recent hospitalization is reported. Screenin:30 Abuse screen: Denies threats or abuse. Denies injuries from another. Nutritional bp screening: No deficits noted. Fall Risk None identified. 10:30 Tuberculosis screening: No symptoms or risk factors identified. bp Assessment: 10:30 General: SEE TRIAGE NOTE. Cardiovascular: Rhythm is sinus tachycardia. Respiratory: bp Airway is patent Respiratory effort is even, unlabored, Breath sounds are coarse bilaterally. 11:30 Reassessment: LACTIC AND DDIMER CRITICAL VALUES REC'D FROM LAB AND RELAYED TO MD. bp 12:13 Reassessment: CT RESULTS PENDING. VS STABLE ON MONITOR. bp 13:15 Reassessment: ADMIT PENDING, CXR ABNORMAL PER RADIOLOGIST. bp 14:21 Reassessment: PT SEEN BY DR RINCON, ADMIT IN PROCESS. bp 15:46 Reassessment: ADMIT IN PROCESS, NO SIGNIFICANT CHANGES. bp 17:09 Reassessment: ADMIT IN PROCESS, BED ASSIGNED. NO CHANGE IN S/S. bp 17:38 Reassessment: ADMIT COMPLETE, REPORT TO YANCY ANDREWS FOR RM 219. bp Vital Signs: 10:28 BP 122 / 76; Pulse 112; Resp 22; Temp 98.4(TE); Pulse Ox 95% on R/A; Weight 71.21 kg ca1 (R); Height 5 ft. 3 in. (160.02 cm); Pain 0/10; 11:02 BP 113 / 78; Pulse 108; Resp 21; Pulse Ox 95% ; bp 11:30 BP 115 / 84; Pulse 99; Resp 16; Pulse Ox 94% ; bp 12:12 BP 108 / 71; Pulse 99; Resp 16; Pulse Ox 93% ; bp 13:15 BP 117 / 62; Pulse 98; Resp 16; Pulse Ox 94% ; bp 14:15 BP 113 / 81; Pulse 100; Resp 17; Pulse Ox 93% ; bp 15:45 BP 117 / 77; Pulse 94; Resp 16; Pulse Ox 93% ; bp 17:09 BP 114 / 76; Pulse 87; Resp 16; Pulse Ox 93% ; bp 10:28 Body Mass Index 27.81 (71.21 kg, 160.02 cm) ca1 ED Course: 10:14 Patient arrived in ED. as 10:30 Patient has correct armband on for positive identification. Placed in gown. Bed in low bp position. Call light in reach. Side rails up X2. 10:33 Triage completed. ca1 10:34 Arm band placed on right wrist. ca1 10:39 Lauro Kilgore, DARRYL is Primary Nurse. bp 10:39 Den Nunn MD is Attending Physician. rn 10:55 Inserted saline lock: 20 gauge in right forearm, using aseptic technique. Blood bp collected. 12:05 CT Chest For PE Angio In Process Unspecified. EDMS 12:12 Throat Culture Sent. bp 12:35 Mike Rincon is Hospitalizing Provider. rn 15:18 CXR XRAY In Process Unspecified. EDMS Administered Medications: 11:05 Drug: Decadron - Dexamethasone 10 mg Route: IVP; Site: right forearm; bp 12:12 Follow up: Response: No adverse reaction bp 11:05 Drug: NS 0.9% 500 ml Route: IV; Rate: bolus; Site: right forearm; bp 14:10 Follow up: IV Status: Completed infusion; IV Intake: 500ml bp 11:05 Drug: NS 0.9% 500 ml Route: IV; Rate: bolus; Site: right forearm; bp 14:10 Follow up: IV Status: Completed infusion; IV Intake: 500ml bp Intake: 14:10 IV: 500ml; Total: 500ml. bp 14:10 IV: 500ml; Total: 1000ml. bp Outcome: 12:35 Discharge ordered by . rn 12:36 Decision to Hospitalize by Provider. rn 17:55 Patient left the ED. bp Signatures: Dispatcher [employer] EDMS Scarlett Walls Roman, MD MD rn Peltier, Brian, RN RN bp AcGalina kothari RN RN ca1 Corrections: (The following items were deleted from the chart) 12:13 12:12 Pulse 99bpm; Resp 16bpm; Pulse Ox 93%; bp bp
--- NOTE | 2020-06-26 12:35 | EDPHYS ---
Physician Documentation [facility] Name: Stephanie Cox Age: 65 yrs Sex: Female : 1955 Arrival Date: 06/26/2020 Time: 10:14 Bed 14 Private MD: ED Physician Den Nunn HPI: 06/26 11:31 This 65 yrs old Female presents to ER via Ambulatory with complaints of rn Breathing Difficulty. 11:31 The patient has shortness of breath at rest, with light activity. Onset: The rn symptoms/episode began/occurred 2 week(s) ago. Duration: The symptoms are continuous. The patient's shortness of breath is aggravated by exertion. Severity of symptoms: At their worst the symptoms were moderate in the emergency department the symptoms are unchanged. The patient has not experienced similar symptoms in the past. Reports cough and sob for 1-2 weeks, getting worse, triage states O2 87%, tested neg for COVID at beginning of symptoms, but none more recent. . Historical: - Allergies: 10:34 PENICILLINS; ca1 10:34 Prevacid; ca1 10:34 Tamiflu; ca1 10:34 Tape; ca1 10:34 Latex, Natural Rubber; ca1 - PMHx: 10:34 Anxiety; Hyperlipidemia; Hypertension; Hypothyroidism; ca1 - PSHx: 10:34 Cholecystectomy; Hernia repair; cyst removed; Appendectomy; Hysterectomy; Bladder Lift; ca1 - Immunization history:: Adult Immunizations up to date. - Social history:: Smoking status: Patient denies any tobacco usage or history of. - Family history:: not pertinent. - Hospitalizations: : No recent hospitalization is reported. ROS: 11:31 Constitutional: Negative for fever, chills, and weight loss, Eyes: Negative for injury, rn pain, redness, and discharge, Neck: Negative for injury, pain, and swelling, Cardiovascular: + chest pain Respiratory: + cough and sob Abdomen/GI: Negative for abdominal pain, nausea, vomiting, diarrhea, and constipation, MS/Extremity: Negative for injury and deformity, Skin: Negative for injury, rash, and discoloration, Neuro: Negative for headache, numbness, tingling, and seizure. Exam: 11:31 Constitutional: This is a well developed, well nourished patient who is awake, alert, rn +mild tachypnea Head/Face: Normocephalic, atraumatic. ENT: no stridor Cardiovascular: Tachycardic, regular Respiratory: + mild hyperventilation, no retractions Abdomen/GI: soft, non-tender Skin: Warm, dry MS/ Extremity: Pulses equal, no cyanosis. Neurovascular intact. Full, normal range of motion. Equal circumference. Neuro: Awake and alert, GCS 15 Vital Signs: 10:28 BP 122 / 76; Pulse 112; Resp 22; Temp 98.4(TE); Pulse Ox 95% on R/A; Weight 71.21 kg ca1 (R); Height 5 ft. 3 in. (160.02 cm); Pain 0/10; 11:02 BP 113 / 78; Pulse 108; Resp 21; Pulse Ox 95% ; bp 11:30 BP 115 / 84; Pulse 99; Resp 16; Pulse Ox 94% ; bp 12:12 BP 108 / 71; Pulse 99; Resp 16; Pulse Ox 93% ; bp 13:15 BP 117 / 62; Pulse 98; Resp 16; Pulse Ox 94% ; bp 14:15 BP 113 / 81; Pulse 100; Resp 17; Pulse Ox 93% ; bp 15:45 BP 117 / 77; Pulse 94; Resp 16; Pulse Ox 93% ; bp 17:09 BP 114 / 76; Pulse 87; Resp 16; Pulse Ox 93% ; bp 10:28 Body Mass Index 27.81 (71.21 kg, 160.02 cm) ca1 MDM: 10:39 Patient medically screened. rn 12:33 ED course: Allergy to tamiflu. + FLU B, most likely COVID-19, + oxygen requirement, rn will admit to Dr. Stringer for further care. . 13:17 Differential diagnosis: pneumonia, Pneumothorax pulmonary edema, Pulmonary Embolism rn reactive airway disease, Sepsis. Data reviewed: vital signs, nurses notes, lab test result(s), EKG, radiologic studies, and as a result, I will admit patient. Counseling: I had a detailed discussion with the patient and/or guardian regarding: the historical points, exam findings, and any diagnostic results supporting the discharge/admit diagnosis, lab results, radiology results, the need for further work-up and treatment in the hospital. 06/26 10:46 Order name: Blood Culture Adult (2) rn 06/26 10:46 Order name: BMP; Complete Time: 12:06 rn 06/26 10:46 Order name: C-Reactive Protein; Complete Time: 12: rn 06/26 10:46 Order name: CBC with Diff; Complete Time: 12: rn 06/26 10:46 Order name: D-Dimer; Complete Time: 12: rn 06/26 10:46 Order name: Ferritin; Complete Time: 12: rn 06/26 10:46 Order name: Flu; Complete Time: 12: rn 06/26 10:46 Order name: Lactate; Complete Time: 12: rn 06/26 10:46 Order name: Procalcitonin; Complete Time: 12: rn 06/26 10:46 Order name: PT-INR; Complete Time: 12: rn 06/26 10:46 Order name: Ptt, Activated; Complete Time: 12: rn 06/26 10:46 Order name: Strep; Complete Time: 12: rn 06/26 10:46 Order name: Troponin (emerg Dept Use Only); Complete Time: 12: rn 06/26 10:46 Order name: CXR XRAY 06/26 10:46 Order name: EKG; Complete Time: 10:47 rn 06/26 10:46 Order name: Cardiac monitoring; Complete Time: 11: rn 06/26 10:46 Order name: Droplet/Contact Precautions; Complete Time: 11: rn 06/26 10:46 Order name: EKG - Nurse/Tech; Complete Time: 12: rn 06/26 10:46 Order name: IV Start; Complete Time: 11: rn 06/26 10:46 Order name: Labs collected and sent; Complete Time: 11: rn 06/26 10:46 Order name: O2 Per Protocol; Complete Time: 11: rn 06/26 10:46 Order name: BNP; Complete Time: 12: rn 06/26 11:21 Order name: CT Chest For PE Angio; Complete Time: 12:32 rn 06/26 11:48 Order name: Throat Culture [facility] 06/26 12:32 Order name: SARS-COV-2 RT PCR [facility] 06/26 15:02 Order name: Lactate Sepsis 2 HR Follow-up [facility] 06/26 10:46 Order name: O2 Sat Monitoring; Complete Time: 11: rn 06/26 14:06 Order name: Labs - recollect needed: recollect lactate. specimen was in a green top.; bd Complete Time: 14:32 Administered Medications: 11:05 Drug: Decadron - Dexamethasone 10 mg Route: IVP; Site: right forearm; bp 12:12 Follow up: Response: No adverse reaction bp 11:05 Drug: NS 0.9% 500 ml Route: IV; Rate: bolus; Site: right forearm; bp 14:10 Follow up: IV Status: Completed infusion; IV Intake: 500ml bp 11:05 Drug: NS 0.9% 500 ml Route: IV; Rate: bolus; Site: right forearm; bp 14:10 Follow up: IV Status: Completed infusion; IV Intake: 500ml bp Disposition: 06/26/20 12:36 Hospitalization ordered by Mike Stringer for Inpatient Admission. Preliminary diagnosis are Pneumonia, unspecified organism, Hypoxemia, Dyspnea, unspecified, Influenza due to other identified influenza virus. - Bed requested for Telemetry/MedSurg (Inpatient). - Status is Inpatient Admission. bp - Condition is Fair. - Problem is an ongoing problem. - Symptoms have improved. Signatures: Dispatcher [employer] EDMN Ly Eid Roman, MD MD rn Peltier, Lauro, RN RN bp Nurys, Galina, RN RN ca1 Corrections: (The following items were deleted from the chart) 12:32 10:47 CORONAVIRUS+ ordered. [facility] 12:35 12:35 06/26/2020 12:35 Discharged to Home. Impression: Hypoxemia; Pneumonia, rn unspecified organism; Influenza due to other identified influenza virus. Condition is Stable. Forms are Medication Reconciliation Form, Thank You Letter, Antibiotic Education, Prescription Opioid Use. Follow up: Private Physician; When: As needed; Reason: Recheck today's complaints, Re-evaluation by your physician. Problem is new. Symptoms have improved. rn 12:36 12:36 Hospitalization Ordered by Mike Stringer for Inpatient Admission. Preliminary rn diagnosis is Pneumonia, unspecified organism; Hypoxemia; Dyspnea, unspecified. Bed requested for Telemetry/MedSurg (Inpatient). Status is Inpatient Admission. Condition is Fair. Problem is an ongoing problem. Symptoms have improved. rn 16:09 12:36 06/26/2020 12:36 Hospitalization Ordered by Mike Stringer for Inpatient bd Admission. Preliminary diagnosis is Pneumonia, unspecified organism; Hypoxemia; Dyspnea, unspecified; Influenza due to other identified influenza virus. Bed requested for Telemetry/MedSurg (Inpatient). Status is Inpatient Admission. Condition is Fair. Problem is an ongoing problem. Symptoms have improved. rn 17:55 16:09 06/26/2020 12:36 Hospitalization Ordered by Mike Stringer for Inpatient bp Admission. Preliminary diagnosis is Pneumonia, unspecified organism; Hypoxemia; Dyspnea, unspecified; Influenza due to other identified influenza virus. Bed requested for Telemetry/MedSurg (Inpatient). Status is Inpatient Admission. Condition is Fair. Problem is an ongoing problem. Symptoms have improved. bd
--- NOTE | 2020-06-26 15:36 | RAD REPORT ---
EXAM DESCRIPTION: RAD - Chest Single View - 06/26/2020 3:17 pm CLINICAL HISTORY: Cough;Dyspnea COMPARISON: CT chest same date TECHNIQUE: AP portable chest image was obtained 06/26/2020 3:17 pm . FINDINGS: Interstitial markings are prominent throughout the lung phan. There are patchy ground-gl ass airspace opacities present. No focal consolidation or mass lesion. No cavitation. Heart and vascu lature are normal. No measurable pleural effusion and no pneumothorax. No acute bony abnormality seen . No acute aortic findings suspected. IMPRESSION: Interstitial and alveolar opacities are present as detailed. Viral pneumonia including COVID-19 pneumonia can have this presentation. Noninfectious noncardiogenic edema would be possible as well.
--- NOTE | 2020-06-26 15:55 | P.HP ---
Certification for Inpatient Patient admitted to: Inpatient With expected LOS: >2 Midnights Practitioner: I am a practitioner with admitting privileges, knowledge of patient current condition, hospital course, and medical plan of care. Services: Services provided to patient in accordance with Admission requirements found in Title 42 Section 412.3 of the Code of Federal Regulations Patient History Date of Service: 06/26/20 Reason for admission: Shortness of breath History of Present Illness: 65-year-old woman with a history of hypertension presented to the emergency department with a complaint of progressive shortness of breath of onset 2 weeks ago. Patient saw her PCP, had a COVID 19 test done which was negative. Patient has been on antibiotics for UTI. She had a hysterectomy done about 2 months ago after which she developed urinary tract infection. Patient reports the shortness of breath became much worse since 2 days ago and now has shortness of breath at rest. She denied any chest. She stated she coughs only with deep breathing. Cough is nonproductive. She denied any fever or diarrhea or abdominal pain. Her oxygen saturation was 89% on room air in the ED. She was tachycardic and tachypneic in the ED. CTA thorax demonstrated mild to moderate patchy opacities in the lungs suggestive of viral pneumonia, pneumonitis or pulmonary edema. She again tested negative for COVID 19 today but positive for influenza B. Patient is admitted for pneumonia with hypoxia. Allergies lansoprazole [From Prevacid] Allergy (Verified 04/18/20 12:40) Hives latex Allergy (Verified 04/18/20 12:40) Rash oseltamivir [From Tamiflu] Allergy (Verified 04/18/20 12:40) Rash Penicillins Allergy (Verified 04/18/20 12:40) Hives Home Medications: Amitriptyline [Elavil] 25 mg PO BEDTIME 03/14/19 Colestipol HCl [Colestid] 1 gm PO DAILY 03/14/19 Estradiol [Estrace] 42.5 gm VG EVERY 3RD DAY 03/14/19 Levothyroxine [Synthroid] 50 mcg PO [id number] 03/14/19 Omeprazole Magnesium [Prilosec Otc] 20 mg PO DAILY 03/14/19 lisinopriL [Prinivil] 20 mg PO DAILY 03/14/19 Ascorbic Acid [Vitamin C] 125 mg PO DAILY 04/18/20 Metoprolol Succinate [Toprol Xl] 25 mg PO DAILY 04/18/20 - Past Medical/Surgical History Diabetic: No -: Hypothyroidism -: Hypercholesterolemia -: Hypertension -: Anxiety -: GERD -: appendectomy -: cholecystectomy 1990 -: right breast cyst biopsy (benign) 1990 -: umbilical hernia repair 1959 -: exploratory laparoscopy 1979 -: hysteroscopy/d&c 03/15/2019 -: Hysterectomy - Family History Father -: Heart disease Mother -: Diabetes, Other (see notes) Notes: Gallbladder disease - Social History Smoking Status: Never smoker Alcohol use: No CD- Drugs: No Caffeine use: No Review of Systems Other: Except as documented, all other systems reviewed and negative. Physical Examination - Physical Exam General: Alert, In no apparent distress, Oriented x3 HEENT: Normocephalic, Mucous membr. moist/pink, Sclerae nonicteric Neck: Supple, JVD not distended Respiratory: Clear to auscultation bilaterally, Normal air movement Cardiovascular: No edema, Normal pulses, Regular rate/rhythm, Normal S1 S2 Capillary refill: <2 Seconds Gastrointestinal: Normal bowel sounds, Soft and benign, Non-distended, No tenderness Musculoskeletal: No swelling, No erythema Integumentary: No rashes Neurological: Normal speech, Normal strength at 5/5 x4 extr - Studies Laboratory Data (last 24 hrs) 06/26/20 10:50: PT 13.1 H, INR 1.11, APTT 28.7 06/26/20 10:50: WBC 7.9, Hgb 10.9 L, Hct 32.2 L, Plt Count 508 H 06/26/20 10:50: Sodium 134 L, Potassium 3.4 L, BUN 8, Creatinine 0.99, Glucose 168 H Microbiology Data (last 24 hrs): 06/26/20 10:55 Throat Group A Streptococcus Rapid Screen - Final 06/26/20 10:55 Nasopharnyx Influenza Type A Antigen Screen - Final 06/26/20 10:55 Nasopharnyx Influenza Type B Antigen Screen - Final Assessment and Plan - Problems (Diagnosis) (1) Acute respiratory failure with hypoxia Current Visit: Yes Status: Acute (2) Atypical pneumonia Current Visit: Yes Status: Acute (3) Hypertension Current Visit: Yes Status: Acute (4) Hypothyroidism Current Visit: Yes Status: Acute (5) Anemia Current Visit: Yes Status: Acute - Plan Admit patient to the medical floor. Start supplemental oxygen. She will be treated with IV Levaquin for atypical pneumonia. Will avoid Tamiflu given significant adverse reaction with it. Bronchodilators Trial of steroid Follow blood cultures. Patient is currently normotensive. Hold lisinopril for now Continue home dose Synthroid. - Advance Directives Does patient have a Living Will: No Does patient have a Durable POA for Healthcare: No
[2020-06-26] MEDS ORDERED: ACETAMINOPHEN 500 MG TAB PO PRN (18:02)
[2020-06-26 18:36] VITALS: BMI 26.9
[2020-06-26] MEDS: Levofloxacin 750mg IV 750 MG/150 ML BAG IV SCH (19:25)
[2020-06-26] MEDS: NA CHLORIDE 0.9% 1,000 ML IV SCH (19:25)
[2020-06-26] MEDS: ALBUTEROL 2.5 MG/3 ML NEB SOL NEB SCH (20:20)
[2020-06-26] MEDS: ENOXAPARIN 40 MG/0.4 ML SQ SCH (23:27)
[2020-06-27] MEDS: AMITRIPTYLINE 25 MG TAB PO SCH ×2 (00:58→20:07)
[2020-06-27] MEDS: ALBUTEROL 2.5 MG/3 ML NEB SOL NEB SCH ×4 (01:25→20:25)
[2020-06-27 05:32] LABS: Absolute Lymphocytes (CBC) 1.6 K/uL (0.7-4.9); Basophils % 0.2 % (0-1.3); Hematocrit 27.1 % (36.0-45.0); Lymphocytes % 17.4 % (15.3-44.8); MPV 6.5 fL (7.6-11.3); RBC Red Blood Cell Count 3.16 M/uL (3.86-4.86)
[2020-06-27 05:54] LABS: BUN Blood Urea Nitrogen 7 mg/dL (7-18); Bicarbonate 25 mmol/L (21-32); Glucose Level 89 mg/dL (74-106); HDL Cholesterol 44 mg/dL (40-60); LDL Cholesterol, Calculated 74 (<130); Phosphorus 3.3 mg/dL (2.5-4.9); Potassium 3.9 mmol/L (3.5-5.1); Sodium Level 140 mmol/L (136-145)
[2020-06-27] MEDS: PANTOPRAZOLE 40MG TABLET PO SCH (07:02)
[2020-06-27] MEDS: NA CHLORIDE 0.9% 1,000 ML IV SCH (07:22)
[2020-06-27] MEDS: ENOXAPARIN 40 MG/0.4 ML SQ SCH (09:34)
[2020-06-27] MEDS: LEVOTHYROXINE SOD 0.05 MG TABLET PO SCH (12:19)
--- NOTE | 2020-06-27 12:38 | P.PN ---
Subjective Date of Service: 06/27/20 Chief Complaint: Shortness of breath Patient states she feels better than before admission but still has significant shortness of breath with exertion. She is tolerating room air. She has been afebrile and coughing only occasionally. Cough is nonproductive. Physical Examination - Vital Signs Temperature: 98.1 F Blood Pressure: 119/59 Pulse: 95 Respirations: 18 Pulse Ox (%): 94 - Physical Exam General: Alert, In no apparent distress HEENT: Mucous membr. moist/pink Neck: Supple Respiratory: Clear to auscultation bilaterally, Normal air movement Cardiovascular: No edema, Regular rate/rhythm, Normal S1 S2 Gastrointestinal: Normal bowel sounds, Soft and benign, No tenderness Musculoskeletal: No swelling Integumentary: No rashes Neurological: Other (Nonfocal) - Studies Microbiology Data (last 24 hrs): 06/26/20 10:55 Throat Group A Streptococcus Rapid Screen - Final 06/26/20 10:55 Nasopharnyx Influenza Type A Antigen Screen - Final 06/26/20 10:55 Nasopharnyx Influenza Type B Antigen Screen - Final Assessment And Plan - Current Problems (Diagnosis) (1) Acute respiratory failure with hypoxia Current Visit: Yes Status: Acute (2) Atypical pneumonia Current Visit: Yes Status: Acute (3) Hypertension Current Visit: Yes Status: Acute (4) Hypothyroidism Current Visit: Yes Status: Acute (5) Anemia Current Visit: Yes Status: Acute (6) Influenza due to influenza virus, type B Current Visit: Yes Status: Acute - Plan Continue IV Levaquin for atypical pneumonia Tamiflu is avoided because patient is allergic to it. Bronchodilators Oxygen p.r.n. Oral steroid Blood cultures: No growth to date. Patient is currently normotensive. Hold lisinopril for now Continue home dose Synthroid.
[2020-06-27] MEDS: Levofloxacin 750mg IV 750 MG/150 ML BAG IV SCH (18:11)
[2020-06-28] MEDS: ALBUTEROL 2.5 MG/3 ML NEB SOL NEB SCH ×3 (02:40→13:19)
[2020-06-28 05:30] LABS: Absolute Lymphocytes (CBC) 1.7 K/uL (0.7-4.9); Hematocrit 27.5 % (36.0-45.0); Lymphocytes % 25.8 % (15.3-44.8); MPV 6.5 fL (7.6-11.3); RBC Red Blood Cell Count 3.19 M/uL (3.86-4.86)
[2020-06-28 05:53] LABS: Potassium 3.5 mmol/L (3.5-5.1)
[2020-06-28] MEDS: PANTOPRAZOLE 40MG TABLET PO SCH (05:53)
[2020-06-28] MEDS ORDERED: POTASSIUM 25 MEQ EFFERV TAB PO ONE (07:00)
[2020-06-28] MEDS: ENOXAPARIN 40 MG/0.4 ML SQ SCH (07:54)
--- NOTE | 2020-06-28 11:59 | P.PN ---
Subjective Date of Service: 06/28/20 Chief Complaint: Shortness of breath Patient appeared short of breath with speaking. She is tolerating room air at rest. Physical Examination - Vital Signs Temperature: 98.1 F Blood Pressure: 132/72 Pulse: 93 Respirations: 18 Pulse Ox (%): 95 - Physical Exam General: Alert, In no apparent distress HEENT: Mucous membr. moist/pink Neck: Supple Respiratory: Crackles/rales (Diffuse crackles-bilateral, right greater than left) Cardiovascular: No edema, Normal S1 S2, Other (Tachycardia.) Gastrointestinal: Normal bowel sounds, Soft and benign, Non-distended, No tenderness Musculoskeletal: No swelling, No erythema Integumentary: No rashes Neurological: Other (Nonfocal.) - Studies Microbiology Data (last 24 hrs): 06/26/20 10:55 Throat Culture & Sensitivity - Final NORMAL UPPER RESPIRATORY ROBIN GROWN. Assessment And Plan - Current Problems (Diagnosis) (1) Acute respiratory failure with hypoxia Current Visit: Yes Status: Acute (2) Atypical pneumonia Current Visit: Yes Status: Acute (3) Hypertension Current Visit: Yes Status: Acute (4) Hypothyroidism Current Visit: Yes Status: Acute (5) Anemia Current Visit: Yes Status: Acute (6) Influenza due to influenza virus, type B Current Visit: Yes Status: Acute - Plan Continue IV Levaquin for atypical pneumonia Tamiflu is avoided because patient is allergic to it. Continue Bronchodilators Oxygen p.r.n. IV steroid. Blood cultures: No growth to date. Patient is currently normotensive. Hold lisinopril for now Continue home dose Synthroid. Assess SaO2 with exertion.
[2020-06-28] MEDS: LEVOTHYROXINE SOD 0.05 MG TABLET PO SCH (12:21)
[2020-06-28 12:42] VITALS: O2SAT 95
[2020-06-28] MEDS: Levofloxacin 750mg IV 750 MG/150 ML BAG IV SCH (17:14)
[2020-06-28 17:44] VITALS: BP 115/65; TEMP 97.7
--- NOTE | 2020-06-28 18:38 | P.DS ---
Admission Date: 06/26/20 Discharge Date: 06/28/20 Disposition: ROUTINE DISCHARGE Discharge Condition: FAIR Reason for Admission: Shortness of breath - Problems (1) Acute respiratory failure with hypoxia Current Visit: Yes Status: Acute (2) Atypical pneumonia Current Visit: Yes Status: Acute (3) Hypertension Current Visit: Yes Status: Acute (4) Hypothyroidism Current Visit: Yes Status: Acute (5) Anemia Current Visit: Yes Status: Acute (6) Influenza due to influenza virus, type B Current Visit: Yes Status: Acute Brief History of Present Illness: 65-year-old woman with a history of hypertension presented to the emergency department with a complaint of progressive shortness of breath of onset 2 weeks ago. Patient saw her PCP, had a COVID 19 test done which was negative. Patient has been on antibiotics for UTI. She had a hysterectomy done about 2 months ago after which she developed urinary tract infection. Patient reports the shortness of breath became much worse since 2 days ago and now has shortness of breath at rest. She denied any chest. She stated she coughs only with deep breathing. Cough is nonproductive. She denied any fever or diarrhea or abdominal pain. Her oxygen saturation was 89% on room air in the ED. She was tachycardic and tachypneic in the ED. CTA thorax demonstrated mild to moderate patchy opacities in the lungs suggestive of viral pneumonia, pneumonitis or pulm onary edema. She again tested negative for COVID 19 today but positive for influenza B. Patient is admitted for pneumonia with hypoxia. Hospital Course: Patient admitted to the medical floor and treated with antibiotics for possible secondary bacterial pneumonia and steroids for inflammation. She tested negative for COVID 19. She did not require oxygen both at rest and with exertion. Her clinical condition improved but not back to baseline yet. Acute respiratory failure resolved. Patient is deemed clinically stable. She is discharged with oral Levaquin. Vital Signs/Physical Exam: Temp Pulse Resp BP Pulse Ox 97.7 F 92 H 18 115/65 95 06/28/20 16:00 06/28/20 16:00 06/28/20 16:00 06/28/20 16:00 06/28/20 16:00 General: Alert, In no apparent distress HEENT: Mucous membr. moist/pink Respiratory: Crackles/rales (Mild scattered crackles.) Cardiovascular: No edema, Regular rate/rhythm, Normal S1 S2 Gastrointestinal: Normal bowel sounds, Soft and benign, No tenderness Musculoskeletal: No swelling, No erythema Integumentary: No rashes Laboratory Data at Discharge: WBC 6.4 K/uL (4.3-10.9) D 06/28/20 05:04 Hgb 9.4 g/dL (12.0-15.0) L 06/28/20 05:04 Hct 27.5 % (36.0-45.0) L 06/28/20 05:04 Plt Count 497 K/uL (152-406) H 06/28/20 05:04 PT 13.1 SECONDS (9.5-12.5) H 06/26/20 10:50 INR 1.11 06/26/20 10:50 APTT 28.7 SECONDS (24.3-36.9) 06/26/20 10:50 Sodium 138 mmol/L (136-145) 06/28/20 05:04 Potassium 3.5 mmol/L (3.5-5.1) 06/28/20 05:04 BUN 5 mg/dL (7-18) L 06/28/20 05:04 Creatinine 0.73 mg/dL (0.55-1.3) 06/28/20 05:04 Glucose 97 mg/dL (74-106) 06/28/20 05:04 Phosphorus 3.3 mg/dL (2.5-4.9) 06/27/20 05:11 Magnesium 2.0 mg/dL (1.8-2.4) 06/27/20 05:11 Triglycerides 66 mg/dL (<150) 06/27/20 05:11 Cholesterol 131 mg/dL (<200) 06/27/20 05:11 HDL Cholesterol 44 mg/dL (40-60) 06/27/20 05:11 Cholesterol/HDL Ratio 2.98 06/27/20 05:11 Home Medications: Amitriptyline [Elavil*] 25 mg PO BEDTIME 03/14/19 Estradiol [Estrace] 42.5 gm VG EVERY 3RD DAY 03/14/19 Levothyroxine [Synthroid*] 50 mcg PO NOON 03/14/19 Omeprazole Magnesium [Prilosec Otc] 20 mg PO BID 03/14/19 lisinopriL [Prinivil*] 20 mg PO BEDTIME 03/14/19 Metoprolol Succinate [Toprol Xl*] 25 mg PO DAILY 04/18/20 Albuterol Neb [Proventil 0.083% Neb Soln] 2.5 mg NEB [id number] #90 amp 06/28/20 Guaifenesin [Mucinex] 600 mg PO BID #30 tab.er.12h 06/28/20 Guaifenesin/Dextromethorphan [Robitussin Cough-Chest Dm Liq] 5 ml PO Q6H PRN #237 ml 06/28/20 Polyethylene Glycol 3350 [Miralax] 17 gm PO DAILY #30 powd.pack 06/28/20 Sennosides [Senna] 17.2 mg PO BID #120 tablet 06/28/20 levoFLOXacin [Levaquin] 500 mg PO DAILY #5 tab 06/28/20 predniSONE [Deltasone] 40 mg PO DAILY #3 tab 06/28/20 New Medications: Albuterol Neb [Proventil 0.083% Neb Soln] 2.5 mg NEB [id number] #90 amp levoFLOXacin [Levaquin] 500 mg PO DAILY #5 tab Polyethylene Glycol 3350 [Miralax] 17 gm PO DAILY #30 powd.pack Guaifenesin [Mucinex] 600 mg PO BID #30 tab.er.12h predniSONE [Deltasone] 40 mg PO DAILY #3 tab Guaifenesin/Dextromethorphan [Robitussin Cough-Chest Dm Liq] 5 ml PO Q6H PRN #237 ml PRN Reason: Cough Sennosides [Senna] 17.2 mg PO BID #120 tablet Diet: AHA Activity: Ad xiao
[2020-06-28] MEDS ORDERED: METHYLPREDNISOLONE 40 MG INJ IV SCH (21:00)
== END 2020-06-28 19:30 | disposition home or self-care (01) ==
LOC: ER 10:11 → INTOOBSV 15:10 → ERHOLD 15:10 → 2ND 17:38
PROVIDERS: ADMIT Internal Medicine; ATTEND Internal Medicine
DX: J10.08 Influenza due to other identified influenza virus with other specified pneumonia (principal); J18.8 Other pneumonia, unspecified organism; J96.01 Acute respiratory failure with hypoxia; E03.9 Hypothyroidism, unspecified; E78.00 Pure hypercholesterolemia, unspecified; I10 Essential (primary) hypertension; F41.9 Anxiety disorder, unspecified; K21.9 Gastro-esophageal reflux disease without esophagitis; D64.9 Anemia, unspecified; E78.5 Hyperlipidemia, unspecified; N39.0 Urinary tract infection, site not specified; R00.0 Tachycardia, unspecified; Z20.828 Contact with and (suspected) exposure to other viral communicable diseases; Z88.0 Allergy status to penicillin; Z88.8 Allergy status to other drugs, medicaments and biological substances; Z91.040 Latex allergy status; Z90.710 Acquired absence of both cervix and uterus; Z90.49 Acquired absence of other specified parts of digestive tract; Z82.49 Family history of ischemic heart disease and other diseases of the circulatory system; Z83.3 Family history of diabetes mellitus
CPT/HCPCS: 96361; 93005; 87040 ×2; 87070; 85025 ×3; 80048 ×3; 36415 ×2; 83735; 84100; 85610; 80061; 85379; 87081; 83605 ×2; 85730; 84484; 82728; 84145; 83880; 86140; 87804 ×2; 71275; 71045; 94640; 94760 ×5; 96374; 99284; U0003; Q9967; J1650 ×3; J1100; J7030 ×2; G0378 ×3

== ENCOUNTER 2020-07-05 22:12 | Inpatient (IN) | payer OTHER ==
[2020-07-05] MEDS ORDERED: CEFEPIME 2 GM VIAL IV ONE (23:00)
[2020-07-05] MEDS ORDERED: WATER FOR INJ,STERILE 10 ML IV ONE (23:00)
[2020-07-05] MEDS ORDERED: ALBUTEROL 2.5 MG/3 ML NEB SOL NEB PRN (23:31)
[2020-07-05] MEDS ORDERED: IPRATROPIUM BROM 0.5MG/2.5ML NEB PRN (23:31)
[2020-07-05] MEDS ORDERED: ACETAMINOPHEN 500 MG TAB PO PRN (23:31)
[2020-07-05] MEDS ORDERED: ONDANSETRON 4 MG/2 ML VIAL IV PRN (23:31)
[2020-07-05] MEDS ORDERED: BENZONATATE 100 MG CAP PO PRN (23:31)
--- NOTE | 2020-07-05 23:50 | P.HP ---
Certification for Inpatient Patient admitted to: Inpatient With expected LOS: >2 Midnights Patient will require the following post-hospital care: None Practitioner: I am a practitioner with admitting privileges, knowledge of patient current condition, hospital course, and medical plan of care. Services: Services provided to patient in accordance with Admission requirements found in Title 42 Section 412.3 of the Code of Federal Regulations <Peng Rowland - Last Filed: 07/05/20 23:39> Patient History Date of Service: 07/05/20 Primary Care Provider: Mandi Denis Reason for admission: Bilateral pneumonia History of Present Illness: 65-year-old female with history of hypertension, depression, GERD presented to a stand-alone [facility] emergency department for fever, shortness of breath. Patient reports that she was recently admitted at this facility approximately 9 days ago for shortness of breath and found to have pneumonia, patient also tested positive for influenza B at that time. Patient was treated in the hospital over the course of 3 days and was discharged on oral Levaquin. Patient did well at home with improvement in shortness of breath until today. Patient reports today she began feeling short of breath today and spiked a fever for the 1st time. Patient was evaluated at stand-alone emergency department found to have elevated white blood cell count of 14, tachycardia with a rate of 120, fever of 100.7. Patient also had D-dimer elevation of 2900. Due to elevated D-dimer patient did receive a CT PE protocol CT stand-alone emergency department which showed bilateral ground glass opacities compatible with possible viral pneumonia. Patient has had already 3 COVID tests including 1 for approximately 9 days ago all of which have been negative to date. Provider at stand-alone emergency room wish to transfer patient to our facility for further care as she had recently been admitted for similar symptoms. When I saw the patient in the exam room she was awake, alert, oriented x3. Patient was still mildly tachycardic around 105 but did receive fluids and Tylenol at transferring facility. Patient reports that she also takes Macrobid for urinary prophylaxis after bladder suspension, urinalysis at stay in the emergency department shows trace leukocytes. Patient be admitted for further evaluation and management. - Past Medical/Surgical History Diabetic: No -: Hypothyroidism -: Hypercholesterolemia -: Hypertension -: Anxiety -: GERD -: appendectomy -: cholecystectomy 1990 -: right breast cyst biopsy (benign) 1990 -: umbilical hernia repair 1959 -: exploratory laparoscopy 1979 -: hysteroscopy/d&c 03/15/2019 -: Hysterectomy -: Bladder Psychosocial/ Personal History: Patient lives at home with her cats and is retired. - Family History Father -: Heart disease Mother -: Diabetes, Other (see notes) Notes: Gallbladder disease Sister -: Cancer - Social History Smoking Status: Never smoker Alcohol use: No CD- Drugs: No Caffeine use: No Place of Residence: Home <Peng Rowland - Last Filed: 07/05/20 23:39> Date of Service: 07/06/20 <Demian Nunn - Last Filed: 07/06/20 18:22> Allergies lansoprazole [From Prevacid] Allergy (Verified 04/18/20 12:40) Hives latex Allergy (Verified 04/18/20 12:40) Rash oseltamivir [From Tamiflu] Allergy (Verified 04/18/20 12:40) Rash Penicillins Allergy (Verified 04/18/20 12:40) Hives Home Medications: Amitriptyline [Elavil*] 25 mg PO BEDTIME 03/14/19 Levothyroxine [Synthroid*] 50 mcg PO NOON 03/14/19 Omeprazole Magnesium [Prilosec Otc] 20 mg PO BID 03/14/19 lisinopriL [Prinivil*] 20 mg PO BEDTIME 03/14/19 Metoprolol Succinate [Toprol Xl*] 25 mg PO DAILY 04/18/20 Polyethylene Glycol 3350 [Miralax] 17 gm PO DAILY #30 powd.pack 06/28/20 Nitrofuran Macro [Macrodantin] 100 mg PO DAILY 07/06/20 Review of Systems General: Fever, Chills, Weakness, Malaise Respiratory: Cough, Shortness of Breath, SOB with Excertion <Peng Rowland - Last Filed: 07/05/20 23:39> Physical Examination - Physical Exam General: Alert, In no apparent distress HEENT: Atraumatic, PERRLA, Mucous membr. moist/pink Neck: Supple, 2+ carotid pulse no bruit, No LAD Respiratory: Normal air movement, Crackles/rales (Mild bilaterally) Cardiovascular: Regular rate/rhythm, Normal S1 S2 Gastrointestinal: Normal bowel sounds, No tenderness, No rebound, No guarding Musculoskeletal: No contractures, No erythema, No tenderness Integumentary: No rashes, No significant lesion, No tenderness/swelling Neurological: Normal speech, Normal strength at 5/5 x4 extr, Normal tone, Normal affect <Peng Rowland - Last Filed: 07/05/20 23:39> - Studies Laboratory Data (last 24 hrs) 07/06/20 04:29: Sodium 140, Potassium 4.0, BUN 8, Creatinine 0.71, Glucose 142 H 07/06/20 04:29: WBC 8.3 D, Hgb 10.3 L, Hct 30.6 L, Plt Count 432 H <Demian Nunn - Last Filed: 07/06/20 18:22> Assessment and Plan - Plan Assessment Sepsis secondary to bilateral pneumonia-suspected viral etiology possibly with health care acquired bacterial secondary infection Hypertension Hypothyroidism On chronic Macrobid therapy s/p bladder suspension surgery Plan Sepsis secondary to bilateral pneumonia-suspected viral etiology possibly with h ealth care acquired bacterial secondary infection: Continue with Levaquin/cefepime at this time as patient has had recent admission and is a risk for healthcare associated pneumonia. Blood, urine, sputum cultures obtained. Respiratory therapy consult in place for room air saturations. COVID test obtained and pending. DVT prophylaxis Lovenox 40 mg subcutaneous once daily. Hypertension: Home medications have been continued. Hypothyroidism: Home medications have been continued, will obtain thyroid panel morning labs. On chronic Macrobid therapy s/p bladder suspension surgery: Will hold Macrobid at this time as patient is on Levaquin/cefepime. Discharge Plan: Home Plan to discharge in: 48 Hours - Advance Directives Does patient have a Living Will: No Does patient have a Durable POA for Healthcare: No - Code Status/Comfort Care Code Status Assessed: Yes (Patient is full code) Critical Care: No Time Spent Managing Pts Care (In Minutes): 55 <Peng Rowland - Last Filed: 07/05/20 23:39> Physician Review Additional Text: Plan of care discussed with Peng Rowland, and I agree with the management plan as noted above. <Demian Nunn - Last Filed: 07/06/20 18:22>
[2020-07-05] MEDS ORDERED: CEFEPIME 2 GM VIAL IV SCH (23:55)
[2020-07-06] MEDS ORDERED: CEFEPIME 2 GM VIAL ONE (01:25)
--- NOTE | 2020-07-06 01:38 | P.INFCA ---
Sepsis Focused Assessment - Focused Assessment Complete? Sepsis Focused Assessment Completed?: Yes - Sepsis Screen Result Severe Sepsis: Negative Septic Shock: Negative - Evaluation Current stage of sepsis: Ruled out Reason for ruling out sepsis: fever, tachycardia, Elev. WBC - Vital Signs Reviewed: Yes Temperature: 98.8 F Heart rate: 97 Blood Pressure: 136/77 Respiratory Rate: 18 O2 Sat by Pulse Oximetry: 96 - Examination Date exam was performed: 07/06/20 Time exam was performed: 01:37 Heart: Regular rate/rhythm, S1, S2 Lungs: Clear bilaterally Peripheral pulses: 3+ Normal Peripheral pulse location: Radial Capillary refill: <2 Seconds Skin examination: Normal turgor
[2020-07-06] MEDS: NA CHLORIDE 0.9% 1,000 ML IV SCH ×3 (01:45→20:05)
[2020-07-06] MEDS ORDERED: SODIUM CHL 0.9% 100 ML BAG IV ONE (02:00)
[2020-07-06] MEDS ORDERED: WATER FOR INJ,STERILE 10 ML IV ONE (02:00)
[2020-07-06] MEDS ORDERED: CEFEPIME 2 GM VIAL IV ONE (02:00)
[2020-07-06 02:46] VITALS: BMI 28.0
[2020-07-06 04:44] LABS: Absolute Lymphocytes (CBC) 0.4 K/uL (0.7-4.9); Hematocrit 30.6 % (36.0-45.0); Lymphocytes % 4.9 % (15.3-44.8); MPV 6.2 fL (7.6-11.3)
[2020-07-06] MEDS: LEVOTHYROXINE SOD 0.05 MG TABLET PO SCH (05:07)
[2020-07-06 05:11] LABS: Thyroid Stimulating Hormone 0.306 uIU/mL (0.360-3.740)
[2020-07-06 05:25] LABS: Blood Morphology Comment NOT SEEN (NOT SEEN); Platelet Estimate INCR
[2020-07-06] MEDS: METOPROLOL XL 25 MG TAB PO SCH (06:00)
[2020-07-06] MEDS: PANTOPRAZOLE 40MG TABLET PO SCH (06:05)
[2020-07-06] MEDS: ENOXAPARIN 40 MG/0.4 ML SQ SCH (08:08)
[2020-07-06] MEDS: predniSONE 20 MG TAB PO SCH ×2 (08:09→20:05)
[2020-07-06] MEDS ORDERED: lisinopriL 20 MG TAB PO SCH ×2 (09:00→21:00)
--- NOTE | 2020-07-06 12:07 | P.PN ---
Subjective Date of Service: 07/06/20 Primary Care Provider: Mandi Denis Chief Complaint: Bilateral pneumonia Subjective: Improving (reports she is "doing ok", breathing slightly better) Physical Examination - Vital Signs Temperature: 98.4 F Blood Pressure: 113/63 Pulse: 87 Respirations: 16 Pulse Ox (%): 95 - Physical Exam General: Alert, In no apparent distress Respiratory: Diminished (at bases), Crackles/rales (very mild at bases) Cardiovascular: Regular rate/rhythm, Normal S1 S2 Gastrointestinal: Soft and benign, Non-distended, No tenderness Musculoskeletal: No erythema, No tenderness Integumentary: No rashes, No breakdown Neurological: Normal speech, Normal affect - Studies Laboratory Data (last 24 hrs) 07/06/20 04:29: Sodium 140, Potassium 4.0, BUN 8, Creatinine 0.71, Glucose 142 H 07/06/20 04:29: WBC 8.3 D, Hgb 10.3 L, Hct 30.6 L, Plt Count 432 H Assessment & Plan Physician Review Additional Text: Sepsis secondary to bilateral pneumonia-suspected viral etiology possibly with health care acquired bacterial secondary infection Hypertension Hypothyroidism On chronic Macrobid therapy s/p bladder suspension surgery Plan Sepsis secondary to bilateral pneumonia-suspected viral etiology possibly with health care acquired bacterial secondary infection: -SIRS 01/18: WBC: 14, tachycardic, febrile: 100.7, tachypneic at outside ED -CT: b/l ground glass opacities at outside ED, possible viral pneumonia, 3 COVID tests negative -COVID negative yesterday -Continue with Levaquin/cefepime at this time as patient has had recent admission and is a risk for healthcare associated pneumonia. -Blood, urine, sputum cultures obtained. will follow -Respiratory therapy consult in place for room air saturations. -somewhat improved today, breathing better needing 1-2 L NC, but still appears dyspneic Hypertension: Home medications have been continued. Hypothyroidism: Home medications have been continued On chronic Macrobid therapy s/p bladder suspension surgery: Will hold Macrobid at this time as patient is on Levaquin/cefepime. Dispo: IV abx, f/u cultures, anticipate dc home tomorrow Time Spent Managing Pts Care (In Minutes): 35
[2020-07-06] MEDS: CEFEPIME/SWI 2gm 2 GM/20 ML SYR IV SCH (13:51)
[2020-07-06 16:35] LABS: Urine Appearance CLEAR; Urine Bilirubin NEGATIVE (NEG); Urine Blood NEGATIVE (NEG); Urine Color YELLOW; Urine Glucose NEGATIVE (NEG); Urine Protein NEGATIVE (NEG); Urine Urobilinogen 0.2 mg/dL (0.2-1.0); Urine pH 6.5 (5.0-7.0)
[2020-07-06 18:04] LABS: Urine Bacteria <20 /HPF (<20); Urine RBC NONE SEEN /HPF (NONE SEEN)
[2020-07-06 18:05] LABS: Urine Culture Reflex Order NOT NEEDED
[2020-07-06] MEDS ORDERED: Levofloxacin500mg IV 500 MG/100 ML BAG IV SCH (19:00)
[2020-07-06] MEDS ORDERED: AMITRIPTYLINE 25 MG TAB PO SCH (21:00)
[2020-07-07] MEDS: CEFEPIME/SWI 2gm 2 GM/20 ML SYR IV SCH ×2 (01:53→14:20)
[2020-07-07 03:45] LABS: Absolute Lymphocytes (CBC) 0.9 K/uL (0.7-4.9); Hematocrit 29.2 % (36.0-45.0); Lymphocytes % 8.2 % (15.3-44.8); MPV 6.4 fL (7.6-11.3); RBC Red Blood Cell Count 3.35 M/uL (3.86-4.86)
[2020-07-07 03:57] LABS: Magnesium 2.1 mg/dL (1.8-2.4); Potassium 4.1 mmol/L (3.5-5.1)
[2020-07-07] MEDS: NA CHLORIDE 0.9% 1,000 ML IV SCH ×2 (04:12→09:48)
[2020-07-07] MEDS: LEVOTHYROXINE SOD 0.05 MG TABLET PO SCH (05:03)
[2020-07-07] MEDS: METOPROLOL XL 25 MG TAB PO SCH (05:03)
[2020-07-07] MEDS: PANTOPRAZOLE 40MG TABLET PO SCH (05:03)
[2020-07-07] MEDS: predniSONE 20 MG TAB PO SCH (09:52)
[2020-07-07] MEDS: ENOXAPARIN 40 MG/0.4 ML SQ SCH (09:53)
[2020-07-07 12:20] VITALS: BP 134/65; TEMP 99.2
[2020-07-07 14:40] VITALS: O2SAT 96
--- NOTE | 2020-07-07 14:58 | P.DS ---
Admission Date: 07/05/20 Discharge Date: 07/07/20 Primary Care Provider: Mandi Denis Disposition: ROUTINE DISCHARGE Discharge Condition: GOOD Reason for Admission: Bilateral pneumonia Procedures: Problem list Sepsis secondary to bilateral pneumonia-suspected viral etiology possibly with health care acquired bacterial secondary infection pneumonia. Hypertension Hypothyroidism On chronic Macrobid therapy s/p bladder suspension surgery Brief History of Present Illness: 65-year-old female with history of hypertension, depression, GERD presented to a [facility]alone [facility] emergency department for fever, shortness of breath. Patient reports that she was recently admitted at this facility approximately 9 days ago for shortness of breath and found to have pneumonia, patient also tested positive for influenza B at that time. Patient was treated in the hospital over the course of 3 days and was discharged on oral Levaquin. Patient did well at home with improvement in shortness of breath until today. Patient reports today she began feeling short of breath today and spiked a fever for the 1st time. Patient was evaluated at stand[facility]alone emergency department found to have elevated white blood cell count of 14, tachycardia with a rate of 120, fever of 100.7. Patient also had D-dimer elevation of 2900. Due to elevated D-dimer patient did receive a CT PE protocol CT stand-alone emergency department which showed bilateral ground glass opacities compatible with possible viral pneumonia. Patient has had already 3 COVID tests including 1 for approximately 9 days ago all of which have been negative to date. Provider at stand[facility]alone emergency room asked to transfer patient to our facility for further care as she had recently been admitted for similar symptoms. Hospital Course: Patient was treated with IV levaquin and cefepime. Cultures with NG x24hrs. After transfer to our facility, labwork revealed negative procalcitonin, WBC: 8.3, and remained afebrile. It was unclear if the OSH CT scan showed any change in b/l ground glass opacities, but given patient's significant improvement, she was discharged home to complete a course of Levaquin and prednisone. She is to f/u with her PCP within the next week. Patient was very anxious throughout the hospitalization and lives alone. PT was consulted and patient was appropriate to be discharged home. Vital Signs/Physical Exam: Temp Pulse Resp BP Pulse Ox 99.2 F 95 H 18 134/65 95 07/07/20 12:00 07/07/20 12:00 07/07/20 12:00 07/07/20 12:00 07/07/20 12:00 General: Alert, In no apparent distress Respiratory: Clear to auscultation bilaterally, Diminished (at bases bilaterally) Cardiovascular: Regular rate/rhythm, Normal S1 S2 Gastrointestinal: Soft and benign, Non-distended, No tenderness Musculoskeletal: No erythema, No tenderness Integumentary: No rashes Neurological: Normal speech, Normal affect Laboratory Data at Discharge: WBC 10.5 K/uL (4.3-10.9) D 07/07/20 03:10 Hgb 9.8 g/dL (12.0-15.0) L 07/07/20 03:10 Hct 29.2 % (36.0-45.0) L 07/07/20 03:10 Plt Count 378 K/uL (152-406) 07/07/20 03:10 Sodium 143 mmol/L (136-145) 07/07/20 03:10 Potassium 4.1 mmol/L (3.5-5.1) 07/07/20 03:10 BUN 8 mg/dL (7-18) 07/07/20 03:10 Creatinine 0.66 mg/dL (0.55-1.3) 07/07/20 03:10 Glucose 144 mg/dL (74-106) H 07/07/20 03:10 Magnesium 2.1 mg/dL (1.8-2.4) 07/07/20 03:10 Home Medications: Amitriptyline [Elavil*] 25 mg PO BEDTIME 03/14/19 Levothyroxine [Synthroid*] 50 mcg PO NOON 03/14/19 Omeprazole Magnesium [Prilosec Otc] 20 mg PO BID 03/14/19 lisinopriL [Prinivil*] 20 mg PO BEDTIME 03/14/19 Metoprolol Succinate [Toprol Xl*] 25 mg PO DAILY 04/18/20 Polyethylene Glycol 3350 [Miralax] 17 gm PO DAILY #30 powd.pack 06/28/20 Nitrofuran Macro [Macrodantin*] 100 mg PO DAILY 07/06/20 levoFLOXacin [Levaquin] 1 tab PO DAILY 5 Days #5 tab 07/07/20 predniSONE [Prednisone*] 1 tab PO BID 4 Days #8 tab 07/07/20 New Medications: levoFLOXacin [Levaquin] 1 tab PO DAILY 5 Days #5 tab predniSONE [Prednisone*] 1 tab PO BID 4 Days #8 tab Patient Discharge Instructions: Follow up with PCP within 1 week. New Medications: Levofloxacin - 1 tablet daily for 5 days. Prednisone 20mg twice a day for 4 days. -restart Macrobid after you complete levofloxacin. Take tylenol if you have a fever / low-grade fever Diet: Regular Activity: Ad xiao Time spent managing pt's care (in minutes): 35
== END 2020-07-07 16:00 | disposition home or self-care (01) | DRG 871 ==
LOC: 4TH 22:44
PROVIDERS: ADMIT Hospitalist; ATTEND Hospitalist
DX: A41.9 Sepsis, unspecified organism (principal); J12.9 Viral pneumonia, unspecified; I10 Essential (primary) hypertension; E03.9 Hypothyroidism, unspecified; K21.9 Gastro-esophageal reflux disease without esophagitis; Y95 Nosocomial condition; R00.0 Tachycardia, unspecified; Z90.49 Acquired absence of other specified parts of digestive tract; Z90.710 Acquired absence of both cervix and uterus; Z88.0 Allergy status to penicillin; Z88.8 Allergy status to other drugs, medicaments and biological substances; Z91.040 Latex allergy status; Z79.890 Hormone replacement therapy; Z79.899 Other long term (current) drug therapy; Z79.2 Long term (current) use of antibiotics; Z20.828 Contact with and (suspected) exposure to other viral communicable diseases
CPT/HCPCS: 36415; 80048; 81001; 82728; 83605; 83735; 84145; 84439; 84443; 85025; 87040; 87086; 87088; 97116; 97161; J0692; J1650; J7030; J7512; U0003